=== PATIENT | male | born 1945 | race Caucasian/White ===

== ENCOUNTER 2017-06-16 19:37 | Inpatient (IN) | payer OTHER, MEDICARE ==
[~2017-06-16] VITALS: Ht 185.4 cm; Wt 122.5 kg
--- NOTE | ~2017-06-16 | 2DMMODE ---
[facility] [place] [address] 2 D/M-MODE ECHOCARDIOGRAM Name: PHELPSONEIDAJUANA Room #: 439-P [facility] IN M.R.#: [id number] Admission: 06/16/17 Attend Phys: Kevin Buck, Discharge: Date of : 41 Date of Service: 06/18/17 1136 Report #: [id number] THIS REPORT FOR: //name// APPROVED REPORT Study performed: 06/18/2017 09:10:42 EXAM: Comprehensive 2D, Doppler, and color-flow Echocardiogram Patient Location: Echo lab Room #: 439 Status: routine Other Information Study Quality: Adequate Indications Congestive Heart Failure Diabetes CAD Hypertension/HDD 2D Dimensions IVC: 23.00 mm Volumes Left Atrial Volume (Systole) LA ESV Index: 45.00 mL/m2 Tricuspid Valve RAP Estimate: 10.00 mmHg PA Pressure: 57.00 mmHg Left Ventricle The left ventricle is normal size. There is normal LV segmental wall motion. Borderline concentric left ventricular hypertrophy. The left ventricular systolic function is normal. The left ventricular ejection fraction is within the normal range. LVEF is 60-65%. Findings suggest the left atrial pressure is elevated. Right Ventricle The right ventricle is normal size. The right ventricular systolic function is normal. Atria Left atrium is dilated. Right atrium is dilated. [facility] [employer] [place] [address] 2 D/M-MODE ECHOCARDIOGRAM Name: ONEIDA PHELPS Room #: 439-P ADM IN M.R.#: [id number] Admission: 06/16/17 Attend Phys: Kevin Buck, Discharge: Date of : 41 Date of Service: 06/18/17 1136 Report #: [id number] Aortic Valve The aortic valve is normal in structure. Aortic valve is calcified. No aortic regurgitation is present. Moderate aortic stenosis. Mitral Valve The mitral valve is normal in structure. There is mitral annular calcification. Mild mitral regurgitation. No significant mitral valve stenosis. Tricuspid Valve The tricuspid valve is normal in structure. There is mild tricuspid regurgitation. The right atrial pressure is estimated at 10 mmHg. There is moderate pulmonary hypertension. The estimated PAP was 57 mmHg. Pulmonic Valve The pulmonary valve is normal in structure. Mild pulmonic regurgitation. Great Vessels The aortic root is normal in size. IVC is dilated and collapses >50% with inspiration. Pericardium There is no pericardial effusion. <Conclusion> The left ventricle is normal size. LVEF is 60-65%. Left atrium is dilated. Right atrium is dilated. The aortic valve is normal in structure. Aortic valve is calcified. No aortic regurgitation is present. Moderate aortic stenosis. The mitral valve is normal in structure. There is mitral annular calcification. Mild mitral regurgitation. The tricuspid valve is normal in structure. There is mild tricuspid regurgitation. The right atrial pressure is estimated at 10 mmHg. There is moderate pulmonary hypertension. The estimated PAP was 57 mmHg. [facility] [address] [place] [address] 2 D/M-MODE ECHOCARDIOGRAM Name: ONEIDA PHELPS Room #: 439-P ADM IN M.R.#: [id number] Admission: 06/16/17 Attend Phys: Kevin Buck, Discharge: Date of : 41 Date of Service: 06/18/17 1136 Report #: [id number] The pulmonary valve is normal in structure. Mild pulmonic regurgitation. <ELECTRONICALLY SIGNED> By: Alberto Estrella MD 06/18/17 1136 1136 1136 Alberto Estrella MD /INF
--- NOTE | ~2017-06-16 | HC ---
[facility] [place] [address] [place] [address] CONSULTATION Name: PHELPSONEIDA Room #: 439-P [facility] IN M.R.#: [id number] Admission: 06/16/17 Attend Phys: Kevin Buck MD Discharge: Date of : 43 Report #: [id number] THIS REPORT FOR: //name// CC: Kevin Buck MD DATE OF CONSULTATION: 06/17/2017 REASON FOR CONSULTATION: Epigastric/right upper quadrant abdominal pain. HISTORY OF PRESENT ILLNESS: This is a 72-year-old male patient of Dr. Kevin Buck, who was seen in the [place] [facility] with upper epigastric abdominal pain radiating to his mid back. His symptoms began this past , but were improved on Sunday. Yesterday (Sunday), his symptoms recurred and became more persistent. He was seen in the [place] [facility]. He reports almost immediate postprandial nausea and vomiting after any oral intake including saltines and water, which caused dry heaves. The patient denies fever or chills and has never had pain like this in the past. He underwent a CT of the abdomen and pelvis last night, which revealed cholelithiasis and findings for cholecystitis. In addition to this, the patient had duodenal wall thickening with periduodenal inflammatory stranding. Colonic diverticulosis was also seen with no inflammatory changes. His white blood cell count was not elevated; although he had a slight left shift with 80% segmented neutrophils. He had mild elevation of his total bilirubin of 1.1 and alkaline phosphatase was elevated at 176; transaminase and lipase levels were normal. PAST MEDICAL HISTORY: Includes previous myocardial infarction x 3, diabetes mellitus, asthma, obstructive sleep apnea (uses a CPAP), coronary artery disease, hypercholesterolemia, hypertension, gastroesophageal reflux disease, previous TIA. The patient also has benign prostatic hypertrophy. PAST SURGICAL HISTORY: Includes previous knee surgery, bilateral total hip arthroplasties, coronary artery bypass graft - quintuple, previous cardiac stents, bilateral inguinal hernia repairs in 1976. MEDICATIONS: Flomax, omeprazole, hydrochlorothiazide, NovoLog insulin, Cozaar, Lopressor, Lantus insulin, clonidine, Lipitor, Symbicort, aspirin, Ventolin inhalers and vitamins. See chart for dosing details. ALLERGIES: No known drug allergies. FAMILY HISTORY: Reviewed and noncontributory to this hospitalization. These include heart disease, COPD, diabetes, and hypertension. SOCIAL HISTORY: The patient is and denies use of tobacco (quit 30 years ago) or illicit drugs. [place] [address] CONSULTATION Name: ONEIDA PHELPS Room #: 439-P [facility] IN .R.#: [id number] Admission: 06/16/17 Attend Phys: Kevin Buck MD Discharge: Date of : 41 Report #: [id number] REVIEW OF SYSTEMS: As per history of present illness. GENERAL: The patient denies unintentional weight loss. Denies fever or chills. HEENT: Denies changes in taste, vision, hearing or smell. RESPIRATORY: Reports shortness of breath "always", felt to be secondary to obesity, secondary to insulin use. Denies worsening short of breath. CARDIOVASCULAR: Denies chest pain or palpitations. GASTROINTESTINAL: As per history of present illness. Denies bright red blood per rectum. GENITOURINARY: Denies dysuria, urgency, increased urinary frequency or hematuria. Notes dark urine. NEUROLOGIC: Denies headaches, numbness or tingling. PSYCHIATRIC: Denies depression, anxiety or suicidal ideations. SKIN/INTEGUMENTARY: Denies new skin lesions, rashes or moles. ENDOCRINE: Denies polydipsia, polyuria, heat or cold intolerance. HEMATOLOGIC: Denies easy bleeding, bruising or anemia. All other review of systems is negative. PHYSICAL EXAMINATION: VITAL SIGNS: Temperature 97.4, blood pressure 150/47, pulse 72, respirations 20, height 6 feet 1 inch, weight 270 pounds. GENERAL: This is a well-developed, well-nourished 72-year-old male patient in no acute distress. HEENT: Atraumatic, normocephalic with moist mucosal membranes. He has no scleral icterus. NECK: Supple, no appreciable lymphadenopathy. Trachea is midline. CHEST: Clear bilaterally. No crackles or wheezes. CARDIOVASCULAR: Regular rate and rhythm, S1, S2. ABDOMEN: Soft, but tender to palpation, greatest in the upper epigastrium/right upper quadrant. He has a negative Abdul's sign, no rebound or guarding. No palpable masses, no appreciable hernias. GENITOURINARY: Normal external male genitalia. EXTREMITIES: No clubbing, cyanosis or edema. NEUROLOGIC: Cranial nerves 2-12 grossly intact. PSYCHIATRIC: Normal mood and affect. SKIN/INTEGUMENTARY: No acute inflammatory changes, rashes or lesions are present. LABORATORY DATA: CBC from last night shows a white blood cell count of 3.9, hemoglobin 12.2, hematocrit 36.2 and platelets 38. Electrolytes showed a sodium of 139, potassium 4.4, chloride 103, CO2 25, BUN 33, creatinine 1.5 and glucose 214. AST and ALT were normal at 34 and 20 respectively. Total bilirubin was mildly elevated at 1.1 with an elevated alkaline phosphatase of 176. Lipase was normal at 92. RADIOLOGIC STUDIES: CT findings are as noted above. The patient also underwent a chest x-ray, which showed cardiomegaly and diffuse interstitial thickening [facility] [address] [place] [address] CONSULTATION Name: ONEIDA PHELPS Room #: 439-P ADM IN .R.#: [id number] Admission: 06/16/17 Attend Phys: Kevin Buck MD Discharge: Date of : 43 Report #: [id number] throughout the pulmonary cruz bilaterally. IMPRESSION AND PLAN: This is a 72-year-old male patient with upper epigastric/right upper quadrant abdominal pain radiating through to his back. His imaging studies show both duodenitis and cholecystitis changes. We discussed the pathophysiology and natural history of biliary disease as well as treatment alternatives and surgical options. The patient would benefit from further evaluation with an ultrasound and possibly a PIPIDA scan. Further recommendations will be made pending results of these studies. The patient can try clear liquids today and can take his medications with sips of fluids; however, if he does not tolerate this, he may need to be made n.p.o. Regarding his duodenitis, would continue the proton pump inhibitor and antibiotics, and consider adding Carafate. A GI consult would be beneficial. The patient expressed understanding of the plan, which was also discussed with Dr. Kevin Buck. I sincerely appreciate the opportunity to participate in the care of this patient and will leave further recommendations and orders in the electronic medical record as appropriate. <ELECTRONICALLY SIGNED> By: Fabricio Gatica MD, FACS 06/18/17 0509 1640 2139 Fabricio Gatica MD, FACS /nt
--- NOTE | ~2017-06-16 | EKG ---
[place] [address] [facility] [place] [address] ELECTROCARDIOGRAM REPORT Name: ONEIDA PHELPS Room #: 439-P ADM IN M.R.#: [id number] Admission: 06/16/17 Attend Phys: Kevin Buck MD Discharge: Date of : 43 Report #: [id number] THIS REPORT FOR: //name// [facility] Test Date: 2017-06-17 Test Time: 08:00:10 Pat Name: ONEIDA PHELPS Department: Room: 439 Gender: M Precast Molder: FATOUMATA : 1945 Requested By: Kevin Buck Order Number: [id number] MD: Heath Esteban Measurements Intervals [place] Rate: 85 P: 19 DC: 153 QRS: 92 QRSD: 103 T: 15 QT: 376 QTc: 447 Interpretive Statements Sinus rhythm Occasional premature ventricular complexes Right axis deviation Compared to ECG 06/16/2017 20:01:30 Ventricular premature complex(es) now present Electronically Signed On 06-18-2017 9:23:43 CDT by Heath Esteban [email or web address] <ELECTRONICALLY SIGNED> By: Heath Esteban MD, [facility] 06/18/17922 9 08 Heath Esteban MD, [facility] /EPI
--- NOTE | ~2017-06-16 | EKG ---
[place] [address] [facility] [place] [address] ELECTROCARDIOGRAM REPORT Name: ONEIDA PHELPS Room #: 439-P ADM IN M.R.#: [id number] Admission: 06/16/17 Attend Phys: Kevin Buck MD Discharge: Date of : 43 Report #: [id number] THIS REPORT FOR: //name// [facility] ED Test Date: 2017-06-16 Test Time: 20:01:30 Pat Name: ONEIDA PHELPS Department: Room: 439 Gender: M Continuity Coordinator: ANGELLA : 1945 Requested By: Ainsley Dewitt Order Number: [id number] MD: Heath Esteban Measurements Intervals [place] Rate: 60 P: 24 AK: 158 QRS: 74 QRSD: 114 T: 33 QT: 436 QTc: 436 Interpretive Statements Sinus rhythm Probable left atrial enlargement Incomplete right bundle branch block Compared to ECG 11/09/2016 23:51:47 No significant change was found Electronically Signed On 06-17-2017 10:58:44 CDT by Heath Esteban [email or web address] <ELECTRONICALLY SIGNED> By: Heath Esteban MD, [facility] 06/17/17 1058 00 00 Heaht Esteban MD, [facility] /EPI
[~2017-06-16 19:37] MED LIST: AGGRENOX 25 MG1 EACH PO; AGGRENOX CAPSU1 EACH PO; ALBUTEROL INHAL17 GM INH; ASA81BEC PO; ASPIRIN325 PO; ATORVASTATIN CA40 MG PO; CATAPRES0.1 MG PO; CENTRUM SILVER1 EAC1 PO; CINNAMON OIL480 ML PO; CINNAMON500 MG PO; CLONIDINE0.1 PO; COUMADIN 2 MG TA2 M1 PO; COZAAR 50 MG TA50 M2 PO; COZAAR100 MG PO; DIABETA 5MG TABL5 MG PO; FISH OIL 1,0001 EAC5 PO; FLOMAX0.4 MG PO; FLONASE 0.05%50 MCG NASAL; GLUCOPHAGE1000 MG PO; HYDROCHLOROTHIA25 M1 PO; HYDROCHLOROTHIA25 M2 PO; KAPVAY0.1 MG PO; LANTUS SUBQ; LANTUS100 UNIT/M SUBQ; LEVAQUIN 500 M500 MG PO; LOPRESSOR PO; LOPRESSOR100 MG PO; LORTAB 5-325 M1 EACH PO; NORCO 5-325 TA1 EACH PO; NORVASC 5 MG TAB5 MG PO; NOVOLOG100 UNIT/1 SQ; NOVOLOG100 UNIT/1 SUBQ; OMEPRAZOLE 20 M20 M1 PO; OMEPRAZOLE20 M2 PO; PERCOCET 10-321 EACH PO; PLAVIX 75 MG TA75 M1 PO; PREDNISONE 20 M20 MG PO; SINGULAIR 10 MG10 M1 PO; SPIRIVA INH; SPIRIVA18 MCG; SYMBICORT160 MCG/4. INH; TAMSULOSIN HCL0.4 M1 PO; TOPROL XL100 MG PO; TUSSIONEX PENN473 ML PO; VENTOLIN HFA 1818 GM INH; VITAMIN C500 M1 PO; VITAMIN E400 UNI2 PO; VITAMIN E400 UNIT PO; VITCB500GO PO; ZOCOR 20 MG TAB20 M1 PO; ZOCOR20 MG PO; ZOCOR40 MG PO
[2017-06-16 19:40] VITALS: BP 196/69
[2017-06-16 20:15] LABS: HEMOGLOBIN 12.2 gm/dL (14.0-18.0); PLATELET COUNT 38 thou/uL (150-400)
[2017-06-16 20:17] LABS: HEMATOCRIT 36.2 % (42.0-52.0); MCH 30.6 pg (26.0-34.0); MCHC 33.6 g/dL (28.0-37.0); RBC 3.97 mil/uL (4.50-6.00); RDW 15.5 % (10.5-14.5); WBC 3.9 thou/uL (4.0-11.0)
[2017-06-16 20:18] LABS: MANUAL DIFF YES
[2017-06-16 20:20] LABS: ANION GAP 11 mmol/L (7-16); BUN 33 mg/dL (7-18); CALCIUM 9.2 mg/dL (8.5-10.1); CHLORIDE 103 mmol/L (98-107); CO2 25 mmol/L (21-32); CREATININE 1.5 mg/dL (0.7-1.3); GLUCOSE 214 mg/dL (74-106); POTASSIUM 4.4 mmol/L (3.5-5.1); SODIUM 139 mmol/L (136-145)
[2017-06-16 20:31] LABS: ALBUMIN 3.7 g/dL (3.4-5.0); ALKALINE PHOSPHATASE 176 U/L (46-116); NT-PRO BRAIN NAT PEPTIDE 1188 pg/mL (<300); SGOT 34 U/L (15-37); SGPT 29 U/L (30-65); TOTAL BILIRUBIN 1.1 mg/dL (<0.1-1.0); TOTAL PROTEIN 7.2 g/dL (6.4-8.2); TROPONIN-I < 0.04 ng/mL (<0.04-0.07)
[2017-06-16 20:44] LABS: ABSOLUTE NEUTROPHILS 3.2 thou/uL (1.4-8.2); TOTAL CELL COUNT 100
[2017-06-16 20:45] LABS: PLATELET ESTIMATE DECREASED
[2017-06-16] MEDS ORDERED: VITAMIN E400 UNIT PO (22:42)
[2017-06-16] MEDS ORDERED: VITAMINC500 (22:42)
[2017-06-16] MEDS ORDERED: ASPIR 8181 MG PO (22:42)
[2017-06-16 23:03] VITALS: BP 169/71
[2017-06-16] MEDS ORDERED: VENTOLIN HFA 1818 GM INH (23:32)
[2017-06-16 23:40] VITALS: BP 170/64
[2017-06-17 08:00] VITALS: BP 150/47
[2017-06-17 16:00] VITALS: BP 169/57
[2017-06-17 19:40] VITALS: BP 152/51
[2017-06-18 04:17] LABS: RBC 3.78 mil/uL (4.50-6.00)
[2017-06-18 04:19] LABS: HEMATOCRIT 33.6 % (42.0-52.0); HEMOGLOBIN 11.7 gm/dL (14.0-18.0); MCH 31.1 pg (26.0-34.0); MCHC 34.9 g/dL (28.0-37.0); RDW 14.8 % (10.5-14.5); WBC 6.7 thou/uL (4.0-11.0)
[2017-06-18 04:30] VITALS: BP 159/64
[2017-06-18 04:37] LABS: ALBUMIN 2.9 g/dL (3.4-5.0); CALCIUM 8.5 mg/dL (8.5-10.1); CREATININE 1.3 mg/dL (0.7-1.3); POTASSIUM 4.2 mmol/L (3.5-5.1); TOTAL BILIRUBIN 1.6 mg/dL (<0.1-1.0); TOTAL PROTEIN 6.3 g/dL (6.4-8.2)
[2017-06-18 08:00] VITALS: BP 173/56
[2017-06-18 16:00] VITALS: BP 155/54
[2017-06-18 21:10] VITALS: BP 169/71
[2017-06-19 03:50] LABS: HEMATOCRIT 34.5 % (42.0-52.0); RBC 3.87 mil/uL (4.50-6.00)
[2017-06-19 03:51] LABS: MCH 31.1 pg (26.0-34.0); MCHC 34.8 g/dL (28.0-37.0); MCV 89.3 fL (80.0-100.0); RDW 15.1 % (10.5-14.5); WBC 9.2 thou/uL (4.0-11.0)
[2017-06-19 04:02] LABS: ALBUMIN 2.7 g/dL (3.4-5.0); CALCIUM 8.6 mg/dL (8.5-10.1); CREATININE 1.3 mg/dL (0.7-1.3); POTASSIUM 4.2 mmol/L (3.5-5.1); TOTAL BILIRUBIN 1.3 mg/dL (<0.1-1.0); TOTAL PROTEIN 6.2 g/dL (6.4-8.2)
[2017-06-19 05:00] VITALS: BP 145/53
[2017-06-19 09:02] VITALS: BP 141/53
[2017-06-19 15:41] VITALS: BP 146/52
[2017-06-19 19:39] VITALS: BP 121/53
[2017-06-20 05:49] VITALS: BP 124/45
[2017-06-20] MEDS ORDERED: NORCO 5-325 TA1 EACH PO (07:20)
[2017-06-20] MEDS ORDERED: FLAGYL500 MG PO (07:20)
[2017-06-20] MEDS ORDERED: CIPRO500 MG PO (07:20)
[2017-06-20 08:50] VITALS: BP 104/50
[2017-06-20 16:23] VITALS: BP 104/50
== END 2017-06-20 16:56 | disposition home or self-care (01) | DRG 444 ==
LOC: ER 19:37 → 4S 21:43 → EROBS 21:43 → 4S 23:05
PROVIDERS: Family Medicine; Nurse Practitioner Adult Health; Nurse Practitioner Family
PROC: 0DJ08ZZ Inspection of Upper Intestinal Tract, Via Natural or Artificial Opening Endoscopic (ICD-10-PCS; principal; 2017-06-19)
DX: K81.0 Acute cholecystitis (principal); E43 Unspecified severe protein-calorie malnutrition; N17.9 Acute kidney failure, unspecified; K29.80 Duodenitis without bleeding; Z96.641 Presence of right artificial hip joint; J45.909 Unspecified asthma, uncomplicated; E11.22 Type 2 diabetes mellitus with diabetic chronic kidney disease; I13.10 Hypertensive heart and chronic kidney disease without heart failure, with stage 1 through stage 4 chronic kidney disease, or unspecified chronic kidney disease; N18.9 Chronic kidney disease, unspecified; I25.10 Atherosclerotic heart disease of native coronary artery without angina pectoris; E78.00 Pure hypercholesterolemia, unspecified; K21.9 Gastro-esophageal reflux disease without esophagitis; Z96.642 Presence of left artificial hip joint; G47.33 Obstructive sleep apnea (adult) (pediatric); N40.0 Benign prostatic hyperplasia without lower urinary tract symptoms; D69.6 Thrombocytopenia, unspecified; K29.70 Gastritis, unspecified, without bleeding; K31.7 Polyp of stomach and duodenum; Z98.62 Peripheral vascular angioplasty status; I25.2 Old myocardial infarction; Z87.891 Personal history of nicotine dependence; Z86.73 Personal history of transient ischemic attack (TIA), and cerebral infarction without residual deficits; Z82.49 Family history of ischemic heart disease and other diseases of the circulatory system; Z83.3 Family history of diabetes mellitus; Z95.1 Presence of aortocoronary bypass graft; Z82.5 Family history of asthma and other chronic lower respiratory diseases; Z79.82 Long term (current) use of aspirin; Z79.899 Other long term (current) drug therapy
CPT/HCPCS: 10195; 62110; 62900; 70005

== ENCOUNTER → 2017-06-29 | Outpatient (CLI) | payer OTHER, MEDICARE ==
[~2017-06-29] MED LIST changes: +ASPIR 8181 MG PO; +CIPRO500 MG PO; +FLAGYL500 MG PO; +VITAMINC500
== END ==
LOC: ULTRA 10:33
DX: K81.1 Chronic cholecystitis (principal)

== ENCOUNTER 2017-07-03 08:47 | Inpatient (IN) | payer OTHER, MEDICARE ==
[~2017-07-03] VITALS: Ht 185.4 cm; Wt 103.0 kg
--- NOTE | ~2017-07-03 | EKG ---
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 : 1945 Requested By: Merry Alvares Order Number: [id number] MD: Dario Powers Measurements Intervals [place] Rate: 110 P: 49 ID: 140 QRS: 91 QRSD: 97 T: 260 QT: 313 QTc: 424 Interpretive Statements Sinus tachycardia Frequent Pacs Borderline T abnormalities, diffuse leads Compared to ECG 06/17/2017 08:00:10 T-wave abnormality now present Sinus rhythm no longer present Right-axis deviation no longer present Electronically Signed On 07-08-2017 22:09:18 CDT by Dario Powers [email or web address] <ELECTRONICALLY SIGNED> By: Dario Powers MD 07/08/17 2209 0843 Dario Powers MD /EPI
--- NOTE | ~2017-07-03 | EKG ---
[address] [address] ELECTROCARDIOGRAM REPORT Name: ONEIDA PHELPS Room #: 237- ADM IN M.R.#: [id number] Admission: 07/03/17 Attend Phys: Kevin Buck MD Discharge: Date of : 41 Report #: [id number] THIS REPORT FOR: //name// [facility] Test Date: 2017-07-24 Test Time: 20:03:46 Pat Name: ONEIDA PHELPS Department: Room: 237 P Gender: M Regulatory Leader: FATOUMATA : 1945 Requested By: Kevin Buck Order Number: [id number] MD: Heath Esteban Measurements Intervals [place] Rate: 97 P: 24 [place]: 158 QRS: 90 QRSD: 112 T: 60 QT: 357 QTc: 454 Interpretive Statements Sinus rhythm Borderline intraventricular conduction delay Borderline repolarization abnormality Compared to ECG 07/23/2017 07:46:44 Atrial premature complex(es) no longer present Electronically Signed On 07-25-2017 8:49:34 CDT by Heath Esteban [email or web address] <ELECTRONICALLY SIGNED> By: Heath Esteban MD, [facility] 07/25/17 0849 02 02 Heath Esteban MD, [facility] /EPI
--- NOTE | ~2017-07-03 | HC ---
[facility] [place] [address] [place] [address] CONSULTATION Name: PHELPSONEIDA Room #: 240-P [facility] IN ..#: [id number] Admission: 07/03/17 Attend Phys: Kevin Buck MD Discharge: Date of : 43 Report #: [id number] THIS REPORT FOR: //name// CC: Kevin Buck REASON FOR CONSULTATION: Low urine output. REASON FOR PRESENTATION: Abdominal pain. HISTORY OF PRESENT ILLNESS: The patient is 72-year-old with known cholelithiasis and cholecystitis. He was in the hospital back in May of this year. He was started on appropriate antibiotic with some improvement of his symptoms. He presented to the Emergency Room with worsening abdominal pain. CT showed that he had ascites with multiple gallstones and a stone in the cystic duct. He is known to have diabetes mellitus, obstructive sleep apnea. He also is known to have coronary artery disease. On presentation to the Emergency Room yesterday, he was found to have an elevated creatinine of 3. Has baseline creatinine is around 1.0. Stigmata of inflammatory and SIRS were present. He was admitted to the Intensive Care Unit after having a cholecystostomy tube by interventional radiology. I was consulted to manage his acute kidney injury. PAST MEDICAL HISTORY: 1. Known gallbladder stones. 2. Obstructive sleep apnea. 3. Coronary artery disease. 4. Hypercholesterolemia. 5. Hypertension. 6. Gastroesophageal reflux disease. 7. TIA. 8. Benign prostatic hypertrophy. MEDICATIONS: 1. Flomax. 2. Hydrochlorothiazide. 3. Clonidine. 4. Cozaar: 5. Insulin. 6. Lipitor. 7. Aspirin and multivitamin. ALLERGIES: No known drug allergies. SOCIAL HISTORY: He used to work for [employer] business. He is retired. No drug or alcohol abuse. FAMILY HISTORY: Significant for diabetes mellitus and hypertension. [facility] [address] [place] [address] CONSULTATION Name: ONEIDA PHELPS Room #: 240-P [facility] IN [facility]#: [id number] Admission: 07/03/17 Attend Phys: Kevin Buck MD Discharge: Date of : 43 Report #: [id number] PAST SURGICAL HISTORY: 1. Right knee surgery. 2. Bilateral total hip arthroplasties. 3. Inguinal hernia. 4. Coronary artery bypass. 5. Cardiac stents. REVIEW OF SYSTEMS: GENERAL: No fever or chills. PULMONARY: No shortness of breath. CARDIOVASCULAR: No chest pain or palpitation. GASTROINTESTINAL: Significant for abdominal pain, nausea, vomiting. GENITOURINARY: No frequency, no urgency. NEUROLOGIC: No headache, no numbness. ENDOCRINE: No polydipsia, no polyuria. HEMATOLOGICAL: No easy bruisability. No epistaxis. PHYSICAL EXAMINATION: GENERAL: The patient is alert, oriented, in no apparent distress. VITAL SIGNS: Temperature 37, blood pressure right now in the normal range at 114/50. HEAD AND NECK: No jugular venous distention, no bruit, no thyromegaly. CHEST: Clear to auscultation bilaterally. CARDIOVASCULAR: No rub detected. ABDOMEN: Distended with ascites and cholecystostomy tube. LOWER EXTREMITIES: No edema. LABORATORY DATA: Reviewed. The patient's creatinine on presentation was 3.0 and it is down to 2.2. All of his electrolytes are at target today with sodium of 141, potassium of 3.8 and magnesium of 1.2, which is being replaced. IMAGING: Including his abdomen CT and chest x-ray were reviewed. As I have stated, the abdominal CT reviewed that he has numerous gallbladder stones with moderate ascites, splenomegaly and cystic duct stone. ASSESSMENT AND IMPRESSION: 1. Acute kidney injury. 2. Status post cholecystostomy tube. 3. ____. 4. Systemic inflammatory response syndrome. 5. Elevated white blood cells. 6. Thrombocytopenia. 7. Concerning finding of low platelets, ascites. PLAN: 1. From the renal perspective, the patient seems to be recovering from his [facility] [address] [place] [address] CONSULTATION Name: ONEIDA PHELPS Room #: 240-P [facility] IN ..#: [id number] Admission: 07/03/17 Attend Phys: Kevin Buck MD Discharge: Date of : 43 Report #: [id number] acute kidney injury with good urine output after one time Lasix, he opened up. This is all prerenal acute kidney injury due to SIRS symptoms. 2. Continue with IV fluid. 3. Antibiotics. 4. Ultimately will need definitive approach for his gallbladder issues. 5. Concerning splenomegaly, low platelets, ascites, we will defer to the primary team, might need full GI evaluation. <ELECTRONICALLY SIGNED> By: Jesus Goodwin MD 07/06/17 08 0 09 Jesus Goodwin MD /nt
--- NOTE | ~2017-07-03 | S ---
[facility] [address] [place] [address] SURGICAL PATH RPT PROCEDURE Name: ONEIDA MANTILLA Room #: 237-P ADM IN M.R.#: [id number] Admission: 07/03/17 Date of : 41 Discharge: Report #: [id number] Path Case #: [id number] PATHOLOGY REPORT COLLECTION DATE: 07/13/2017 RECEIVED DATE: 07/13/2017 SUBMITTING PHYS: Dr. Kevin Buck OTHER PHYS: Dr. Kenton Cannon, SPECIMEN(S) RECEIVED: A.Liver biopsies x2 * * * * * * * * * * * * FINAL DIAGNOSIS: Liver, needle core biopsy: - Mild portal chronic inflammation (grade 1 of 4) along with Kupffer cell macrophages in zone 1 compatible with resolving injury. - No increase in fibrosis. (IUV:pit; 07/16/2017) COMMENT: Examination shows mild portal chronic inflammation comprised of scant lymphocytes and rare plasma cells. An occasional eosinophil is present. Kupffer cell macrophages are identified with lipofuscin pigment in zone 1 suggesting resolving injury. A single focus shows calcification within an artery, and may be suggestive of calcific sclerosis. Thinning of hepatocyte cords in zone 3 is not identified. There is no evidence of autoimmune hepatitis, primary biliary cirrhosis, primary sclerosing cholangitis, steatohepatitis, or venoocclusive disease. Special stains are performed on block A1 Trichrome stain - no significant increase in periportal fibrosis (stage 1 of 4) Reticulin stain - single hepatocyte cord PAS with and without Diastase - Kupffer cell macrophages, negative for intracytoplasmic inclusions in zone 1 Iron stain - negative The findings are nonspecific, and may be related to the gallbladder/biliary disease. Clinical correlation is suggested. (IUV:pit; 07/16/2017) PATHOLOGIST: Cathy Black M.D. REPORT ELECTRONICALLY SIGNED BY: Cathy Black M.D. DATE/TIME: 07/16/2017 17:01 * * * * * * * * * * * * [facility] [place] [address] SURGICAL PATH RPT PROCEDURE Name: MANTILLAONEIDA Room #: 237-P [facility] IN [facility].#: [id number] Admission: 07/03/17 Date of : 43 Discharge: Report #: [id number] Path Case #: [id number] GROSS PATHOLOGY: Received in formalin labeled "Oneida Mantilla, liver biopsies 2" is a 1.5 x 0.5 x 0.2 cm aggregate of red-brown cylindrical soft tissue cores. The cores range from 0.1-1.5 cm in length and measure 0.1 cm in diameter. The specimen is submitted entirely in cassette A1. ([facility]; 07/14/2017) CLINICAL HISTORY: Abdominal compartment syndrome and biliary obstruction INITIAL CPT CODE(S): A; 62012, 77068, 69959, 18993, 18697, 83607 Professional services performed by [facility] at [facility] [address] [facility], [place] [address] Technical services performed by [facility] at [address] [place] [address], [address], [place] [address]. [facility] [address] [place] [address] PHONE: [phone] DIRECTOR: Elmer Funez M.D. * * * END OF REPORT * * *
--- NOTE | ~2017-07-03 | HC ---
[facility] [place] [address] CONSULTATION Name: ONEIDA PHELPS Room #: 237-P [facility] IN .R.#: [id number] Admission: 07/03/17 Attend Phys: Kevin Buck MD Discharge: Date of : 43 Report #: [id number] THIS REPORT FOR: //name// CC: Kevin Buck DATE OF SERVICE: 07/20/2017 HISTORY OF PRESENT ILLNESS: The patient is a 73-year-old white male with a prior history of acute cholecystitis with a prior jasiel tube, who was readmitted not feeling well, was noted to have severe sepsis. He had septic shock with acute cholecystitis. He was noted to have an abdominal compartment syndrome secondary to ascites and underwent a decompression laparoscopic appendectomy with drainage of this diabetes and initial placement of an open abdominal wound VAC. He has since undergone closure of the abdominal wall on 07/13/2017. He continues in the intensive care unit. He is still on TPN. His course has been complicated by ileus, atrial fibrillation with rapid ventricular rate, acute renal insufficiency superimposed on chronic kidney disease. We are seeing him in Rehabilitation Medicine consultation. He does have abdominal drains with continued high output. His NG tube has been removed. Plan is to consider a cholecystectomy in the next few months once he is no longer acute. He has considerable weakness with a significant decline in his functional status. We are seeing him in Rehabilitation Medicine consultation. PAST MEDICAL HISTORY: Includes cardiac angioplasty x 2, OK x 3, noninsulin dependent diabetes mellitus. He has had bilateral hips replaced, history of hypertension, GERD. FAMILY HISTORY: Heart disease, COPD, diabetes, hypertension. HABITS: No history of ETOH or tobacco abuse. MEDICATIONS: Please see the full medication listing. ALLERGIES: No known drug allergies. SOCIAL HISTORY: House ____, 3 steps in, premorbid community ambulator without assistive device. REVIEW OF SYSTEMS: Did not offer any current complaints of chest pain or shortness of breath. He does have some overall generalized discomfort and is having some difficulty getting comfortable. He did not complain of any specific lower extremity pain. PHYSICAL EXAMINATION: GENERAL: He is a 72-year-old white male seen in the intensive care unit. VITAL SIGNS: Last recorded temperature is 96.6, pulse 96, respirations 13, [address] [address] CONSULTATION Name: ONEIDA PHELPS Room #: 237-P [facility] IN M.R.#: [id number] Admission: 07/03/17 Attend Phys: Kevin Buck MD Discharge: Date of : 43 Report #: [id number] blood pressure 95/43. NEUROLOGIC: The patient is alert, nasal prong O2 is in place. ABDOMEN: He has the midline abdominal negative pressure wound VAC in place. He has abdominal drains both on the right and the left. EXTREMITIES: Upper extremities revealed functional range of motion with strength grade 3+/5. Lower extremities: He has considerable proximal weakness with difficulty raising his legs up off the bed. I would grade his strength at approximately a 3-3+ distally, morbid 3+. DTRs are decreased. Functionally, he is able to sit up only for 2 minutes and then is max assist to try to lay back supine. ASSESSMENT: A 72-year-old white male with the following problem list: 1. 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 2. Septic shock. 3. Biliary sepsis. 4. Abdominal compartment syndrome, status post laparotomy for decompression, now closed. 5. Acute renal failure, better, CRRT/dialysis cath per Nephrology. 6. Respiratory failure, now on nasal cannula O2. 7. Ileus. 8. Liver disease. 9. Ascites. 10. Paroxysmal atrial fibrillation. 11. Bilateral pleural effusions. 12. Nutrition continuing on TPN. PLAN: He is at a low functional level currently. Continuing with intensive care unit involvement, we will have the therapist work with him on trying to gradually improve his strength and endurance, functional mobility and ADLs. We will be glad to follow along regarding rehab therapy issues as he further medically stabilizes. By: [id number] Evelio Hernández MD /
--- NOTE | ~2017-07-03 | HC ---
[facility] [place] [address] [place] [address] CONSULTATION Name: MATTIEONEIDA Campbell Room #: [facility] IN M.R.#: [id number] Admission: 07/03/17 Attend Phys: Kevin Buck MD Discharge: Date of : 43 Report #: [id number] THIS REPORT FOR: //name// CC: Caty Cabrera DO Kevin Buck MD DATE OF SERVICE: 07/03/2017 PULMONARY CRITICAL CARE NOTE DATE OF SERVICE: 07/03/2017. REFERRING PROVIDER: Dr. Kevin Buck and Dr. Caty Cabrera, Emergency Department. REASON FOR CONSULTATION: Sepsis. CHIEF COMPLAINT: Abdominal pain. HISTORY OF PRESENT ILLNESS: Our group was asked to see the patient in consultation while hospitalized at [facility], a very pleasant 72-year-old male who was recently hospitalized at the end of May, discharged to 06/20/2017, what appeared to be abdominal pain, perhaps related to cholecystitis and duodenitis, was discharged on antibiotic therapy with metronidazole and ciprofloxacin and just finished the antibiotic therapy yesterday. Represented this morning after noticing abdominal pain and been increasing overnight last night. No nausea or vomiting, has had several episodes of clear diarrhea. Denies any fevers, chills or sweats at this time. In the Emergency Department was noted to be in acute renal insufficiency, significant elevated creatinine, had elevated white blood cell count with the left ship. CT of abdomen and pelvis was ordered. Findings of possible diverticulitis along with cholecystitis and ascites noted on CT imaging. We were asked to assist with sepsis management. ALLERGIES: None known. PAST MEDICAL HISTORY: 1. History of coronary artery disease, status post coronary artery bypass grafting. 2. History of asthma on Symbicort p.r.n. but has needed more frequently recently. 3. Diabetes mellitus type 2. 4. Hypertension. 5. Gastroesophageal reflux disease. [facility] [address] [place] [address] CONSULTATION Name: ONEIDA PHELPS Room #: 240-P [facility]#: [id number] Admission: 07/03/17 Attend Phys: Kevin Buck MD Discharge: Date of : 43 Report #: [id number] 6. Obstructive sleep apnea, on nocturnal CPAP. 7. Prior history of transient ischemic attack. 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 No significant alcohol consumption, never smoker. FAMILY HISTORY: Negative for any significant pulmonary disease. OUTPATIENT MEDICATIONS: Include ciprofloxacin, Flagyl discontinued yesterday, hydrocodone, tamsulosin, omeprazole, insulin, losartan, metoprolol, clonidine, atorvastatin, Symbicort inhaler p.r.n., aspirin, vitamin C, vitamin E, and albuterol. REVIEW OF SYSTEMS: CONSTITUTIONAL: Denies any fevers, chills or sweats. ENT: No upper respiratory congestion, rhinorrhea or dysphagia. No headaches. CARDIOVASCULAR: No chest pain or palpitations. GASTROINTESTINAL: Significant abdominal pain, no nausea or vomiting, some clear diarrhea. GENITOURINARY: No dysuria, frequency or hematuria. INTEGUMENT: Denies any new rash. MUSCULOSKELETAL: No new joint pains or swelling. PHYSICAL EXAMINATION: VITAL SIGNS: The patient is currently afebrile, pulse 114 and regular, respiratory rate 20, blood pressure 114/50, oxygen saturation 98% on room air. GENERAL: This is a pleasant elderly male, in mild distress somewhat tachypneic. ENT: Clear oropharynx. No thrush. No erythema. NECK: Supple, no lymphadenopathy. LUNGS: Clear. No wheezes or crackles. CARDIOVASCULAR: Heart was tachycardic, but regular. No murmurs noted. ABDOMEN: Diffusely distended. Diminished bowel sounds. Diffuse tenderness particularly in the upper abdomen. EXTREMITIES: Only trace edema. They are warm with diminished pulses. LABORATORY DATA: Sodium 137, potassium 4.1, chloride 103, bicarbonate 20, BUN 34, creatinine 3.0, glucose 228. Total bilirubin 2.1, alkaline phosphatase 127, lactate 4.8, INR 1.5. White blood cell count 20,000, hemoglobin 13, hematocrit 40, platelet count 139, 16% band forms. Arterial blood gas revealed pH 7.32, pCO2 of 32, pO2 of 79 and bicarbonate 16. IMPRESSION: 1. Severe sepsis, likely related to acute abdominal process. 2. Acute abdomen, likely acute cholecystitis, possibly diverticulitis. 3. Ascites. 4. Lactic acidosis [place] [address] CONSULTATION Name: ONEIDA PHELPS Room #: 240-P [facility] IN M.R.#: [id number] Admission: 07/03/17 Attend Phys: Kevin Buck MD Discharge: Date of : 43 Report #: [id number] 5. Acute renal failure secondary to the above. 6. History of coronary artery disease. 7. Diabetes mellitus type 2. SUGGESTIONS: Sepsis per protocol, central line will be placed, will request Infectious Disease consultation for broad-spectrum antimicrobials, surgical consultation to reevaluate abdomen, ICU care addition, will trend lactate. Additional recommendations to follow. Total critical care time 35 minutes, not including procedures. Discussed with Dr. Cabrera of the Emergency Department as well as with the patient and family at the bedside. <ELECTRONICALLY SIGNED> By: Gabo Glez MD 07/05/17 1014 1114 1212 Gabo Glez MD /nt
--- NOTE | ~2017-07-03 | EKG ---
[place] [address] [facility] [employer] [place] [address] ELECTROCARDIOGRAM REPORT Name: ONEIDA PHELPS Room #: 237- ADM IN M.R.#: [id number] Admission: 07/03/17 Attend Phys: Kevin Buck MD Discharge: Date of : 43 Report #: [id number] THIS REPORT FOR: //name// [facility] Test Date: 2017-07-23 Test Time: 07:46:44 Pat Name: ONEIDA PHELPS Department: Room: 237 P Gender: M Oil Sprayer: MARISABEL : 1945 Requested By: Puja Glass Order Number: [id number] MD: Heath Esteban Measurements Intervals [place] Rate: 96 P: 12 NV: 160 QRS: 91 QRSD: 110 T: -82 QT: 331 QTc: 419 Interpretive Statements Sinus rhythm Atrial premature complexes Right axis deviation Nonspecific ST and T wave abnormality Compared to ECG 07/06/2017 08:43:07 Premature ventricular complexes no longer present Electronically Signed On 07-24-2017 13:01:07 CDT by Heath Esteban [email or web address] <ELECTRONICALLY SIGNED> By: Heath Esteban MD, [facility] 07/24/17 1301 0746 0746 Heath Esteban MD, [facility] /EPI
--- NOTE | ~2017-07-03 | O ---
[facility] [place] [address] OPERATIVE REPORT Name: MATTIEONEIDA Campbell Room #: 237-P [facility] IN M.R.#: [id number] Admission: 07/03/17 Attend Phys: Kevin Buck MD Discharge: Date of : 43 Report #: [id number] THIS REPORT FOR: //name// CC: Kevin Buck DATE OF SERVICE: 07/13/2017 SURGEON: Fabricio Gatica MD MUD MILL TENDER: Kenton Cannon DO PREOPERATIVE DIAGNOSES: 1. Abdominal compartment syndrome secondary to ascites. 2. Acute cholecystitis, status post percutaneous drain. 3. Ileus. 4. Diabetes mellitus. 5. Hypertension. 6. Acute kidney injury with chronic kidney disease. POSTOPERATIVE DIAGNOSES: 1. Abdominal compartment syndrome secondary to ascites. 2. Acute cholecystitis, status post percutaneous drain. 3. Ileus. 4. Diabetes mellitus. 5. Hypertension. 6. Acute kidney injury with chronic kidney disease. PROCEDURE: 1. Second look exploratory laparotomy. 2. Closure of abdominal wall. 3. Placement of Prevena topical wound VAC. ANESTHESIA: General anesthesia. ESTIMATED BLOOD LOSS: 10 mL. SPECIMEN: Rico-Cut core needle liver biopsies times 2. COMPLICATIONS: None appreciated. INDICATIONS FOR PROCEDURE: This is a 72-year-old male, patient of Dr. Kevin Buck, who was admitted this past May with abdominal pain radiating to his mid back. CT revealed changes consistent with cholecystitis and duodenitis. The patient was placed on antibiotics and did well during his hospitalization as well as out of the hospital. He followed up in clinic and had developed worsened pain that day. He then went to the [place] emergency room where he [facility] [address] [place] [address] OPERATIVE REPORT Name: ONEIDA PHELPS Room #: 237-P [facility] IN ..#: [id number] Admission: 07/03/17 Attend Phys: Kevin Buck MD Discharge: Date of : 43 Report #: [id number] was found to have significant leukocytosis and lactic acidosis. His CT revealed moderate ascites and numerous gallstones with gallbladder wall thickening and a stone impacted in the cystic duct. The patient underwent placement of a cholecystostomy tube by interventional radiology. Thereafter, he developed increasing abdominal distention and he was followed with KUBs and CT scans. He was felt to have an ileus secondary to his acute intraabdominal inflammatory process and he was found to have an elevated bladder pressures as high as 45 mmHg. The patient was placed on slow continuous hemodialysis for worsening renal failure and had developed abdominal compartment syndrome. He was felt to have biliary peritonitis; however, at the time of his decompressive laparotomy, there was no bile leak from the cholecystostomy tube. An 8300 mL of ascites fluid was present and this was evacuated. The patient was kept open with an ABThera device and he has been draining at least 2 liters of ascites fluid per day from his wound VAC. The patient presents now for a second look exploratory laparotomy. OPERATIVE FINDINGS: Upon reentrance into the abdominal cavity, only a small amount of ascites fluid was seen within the abdominal cavity. A total of 160 mL of ascites fluid was suctioned from the abdominal cavity. The cholecystostomy tube again was completely intact with no drainage holes outside of the gallbladder. The small-bowel was run from the ligament of Treitz to the terminal ileum and the bowel was completely viable. There was no nonviable tissue within the abdominal cavity. The patient's liver did appear nodular and as a result of this, an 18-gauge Rico-Cut needle liver biopsies times 2 were taken to be sent for specimen. The patient's small-bowel was distended with air consistent with an ileus. The bowel wall itself was not thickened. He continued to have an intense acute inflammatory reaction in the right upper quadrant of the abdomen. No other significant pathology was identified. At the conclusion of the operation, the sponge, needle, and instrument counts were correct. There was no evidence for iatrogenic injury. DESCRIPTION OF PROCEDURE IN DETAIL: After the risks, benefits, and expectations of the operation were discussed with the patient's , informed consent was obtained. The patient was identified in the intensive care unit. He was taken to the operating room and he was placed in the supine position. He has been receiving scheduled IV antibiotics, and as such, preoperative antibiotics were not necessary. The occlusive dressing of the ABThera was then removed. The patient's abdomen was prepped and draped in the standard sterile fashion. The patient had been given general anesthesia through his existing endotracheal tube and his SCDs were placed to pneumatic compression. The patient was then prepped and draped in the standard sterile fashion. A time-out was performed to identify the correct patient and procedure. The fenestrated drape within the abdominal cavity was removed and discarded. Operative findings are as noted above. The adhesions between the loops of small-bowel were carefully taken down with finger fracture technique. [facility] [address] [place] [address] OPERATIVE REPORT Name: ONEIDA PHELPS Room #: 237-P [facility] IN .R.#: [id number] Admission: 07/03/17 Attend Phys: Kevin Buck MD Discharge: Date of : 43 Report #: [id number] small-bowel was then run from the terminal ileum to the ligament of Treitz. Loculated fluid collections were suctioned. The abdominal cavity was then suctioned. The right upper quadrant was visualized and a severe inflammatory reaction was present. The cholecystostomy tube was intact. The nodular liver was biopsied with the Rico-Cut needle times 2. Hemostasis was achieved with electrocautery. No other pathology was identified. Hemovac drains times 2 were placed into the abdominal cavity. The drain exiting on the patient's right side drained the most dependent portion of the abdomen and extended up to the left pericolic gutter. The drain exiting on his left side was brought across the abdomen and up to the right upper quadrant of the abdomen along the right perihepatic space. After ensuring final hemostasis and that the sponge, needle and instrument counts were correct, the fascia was closed with a looped running #1 PDS suture. The drain had been secured to the skin with 2-0 nylon sutures. The wound was then irrigated with normal saline and the skin was stapled for closure. A Prevena topical wound VAC device was then applied to the staple line and connected to suction with a good seal. The patient tolerated the procedure well. He was returned to the intensive care unit in stable condition. <ELECTRONICALLY SIGNED> By: Fabricio Gatica MD, FACS 07/15/17 2246 1415 1447 Fabricio Gatica MD, FACS /nt
--- NOTE | ~2017-07-03 | O ---
[facility] [place] [address] OPERATIVE REPORT Name: ONEIDA PHELPS Room #: 237-P [facility] IN M.R.#: [id number] Admission: 07/03/17 Attend Phys: Kevin Buck MD Discharge: Date of : 43 Report #: [id number] THIS REPORT FOR: //name// CC: Chris Gatica MD DATE OF SERVICE: 07/11/2017 SURGEON: Fabricio Gatica M.D. GLASS CUTTING MACHINE OPERATOR: Kenton Cannon D.O. PREOPERATIVE DIAGNOSES: 1. Abdominal compartment syndrome, suspected to be secondary to bile peritonitis. 2. Acute cholecystitis, status post percutaneous drain placement. 3. Ileus. 4. Type 2 diabetes mellitus. 5. Hypertension. 6. Acute kidney injury with chronic kidney disease. POSTOPERATIVE DIAGNOSES: 1. Abdominal compartment syndrome secondary to ascites. 2. Acute cholecystitis, status post percutaneous drain placement. 3. Ileus. 4. Type 2 diabetes mellitus. 5. Hypertension. 6. Acute kidney injury with chronic kidney disease. PROCEDURES: 1. Decompressive laparotomy with drainage of ascites. 2. Placement of open abdominal wound VAC (ABThera). ANESTHESIA: General endotracheal anesthesia. ESTIMATED BLOOD LOSS: 10 mL. SPECIMEN: None. COMPLICATIONS: None appreciated. INDICATIONS FOR PROCEDURE: This is a 72-year-old male patient of Dr. Kevin Buck, known to me from a previous hospitalization for right upper quadrant abdominal pain. The patient was admitted this past May with abdominal pain [facility] [address] [place] [address] OPERATIVE REPORT Name: ONEIDA PHELPS Room #: 237-P ADM IN .R.#: [id number] Admission: 07/03/17 Attend Phys: Kevin Buck MD Discharge: Date of : 43 Report #: [id number] radiating to his mid back. A CT of the abdomen and pelvis showed cholelithiasis and findings consistent with cholecystitis. Duodenitis was also seen. Duodenal wall thickening and periduodenal inflammatory stranding were present. The patient was placed on antibiotics and did well during the hospitalization. He was eventually dismissed to home and followed up with me in clinic. He developed worsened pain after being seen and visited the [facility] where he was found to have significant leukocytosis and lactic acidosis. CT of the abdomen and pelvis showed moderate ascites and numerous gallstones with gallbladder wall thickening and a stone in the cystic duct. The patient underwent placement of a cholecystostomy tube. He developed increased abdominal distention thereafter, and he was followed with KUBs and CT scans. He had worsened distention. He was felt to have an ileus secondary to his acute intraabdominal inflammatory process. A bladder pressure was checked earlier today with pressures reading 45 mmHg. On recheck, the bladder pressures measured 35-40 mmHg. The patient has been on a slow continuous hemodialysis for worsening renal failure. He is felt to have developed abdominal compartment syndrome. There is a question as to whether the patient is developing bile peritonitis as one of the side holes of the cholecystostomy tube may be outside of the gallbladder and leaking bile into the abdominal cavity. The patient presents now for decompressive laparotomy. OPERATIVE FINDINGS: Upon entrance in the abdominal cavity, clear ascites fluid was seen within the abdomen. A total of 8300 mL of fluid was suctioned from the abdominal cavity. There was a light green tinge present to the fluid. The cholecystostomy tube itself was able to be visualized. It entered an acutely inflamed gallbladder, and none of the side holes were outside of the gallbladder. The liver also had a very nodular appearance. Significant right upper quadrant inflammatory changes were present with thickened tissue, and the tissue was difficult to discern. The patient's stomach was otherwise normal. His small bowel was diffusely distended consistent with an ileus. The bowel was completely viable. The colon appeared otherwise normal. The patient's appendix was also normal. No other significant intraabdominal pathology was identified. At the conclusion of the operation, the sponge, needle and instrument counts were correct, and there was no evidence for iatrogenic injury. DESCRIPTION OF PROCEDURE IN DETAIL: After the benefits and risks of the procedure were explained to the patient and his , which include but are not limited to risks of bleeding, infection, postoperative pain and postoperative expectations, informed consent was obtained. The patient was identified in the preoperative holding area. He has been receiving scheduled IV antibiotics. He was then taken to the operating room, and he was placed in the supine position. SCDs were placed on the patient's bilateral lower extremities, and pneumatic compression was initiated. The patient was then given IV sedation, and he was intubated without any incident. A timeout was performed to identify the correct patient and procedure. [address] [address] OPERATIVE REPORT Name: PHELPSONEIDA Room #: 237-P [facility] IN M.R.#: [id number] Admission: 07/03/17 Attend Phys: Kevin Buck MD Discharge: Date of : 43 Report #: [id number] The patient's abdomen was prepped and draped in a standard sterile fashion. A sharp #10 blade scalpel was used to make a vertical midline incision between the xiphoid and the umbilicus. Electrocautery was used to dissect through the subcutaneous tissue down to the fascia. The fascia was then opened along the length of the incision. The peritoneum was opened, and immediately after doing so, fluid was seen. Cultures were taken to be sent for aerobes, anaerobes and fungus. The fluid was suctioned from the patient's abdominal cavity. The small-bowel was run from the ligament of Treitz distally to the ileocecal valve and back proximally. The right upper quadrant inflammatory process was also visualized. The cholecystostomy tube was seen entering the gallbladder, and the drain holes were all entirely within the gallbladder with no leakage of bile. 10 mL of Tisseel was applied to the entrance site of the catheter into the gallbladder. No other significant intraabdominal pathology was identified. Decision was made to place an ABThera dressing and come back in 48 hours in this septic patient. The nasogastric tube was adjusted with manual palpation. The liver appeared nodular. Due to the intense inflammatory reaction in the right upper quadrant, decision was made not to attempt cholecystectomy. The ABThera perforated dressing was cut to size. The excess foam was removed. The dressing was then placed within the abdominal cavity to envelop the bowel. Blue foam sponges were then tailored to fit the skin opening. The drapes were taken down. The skin was cleansed and dried. Occlusive dressings were then placed over the ABThera device. A small opening was cut into the occlusive dressing, and the suction catheter was connected to this. A good seal on the drain was present. The patient tolerated the procedure well. He was placed on the transfer cart and brought to the intensive care unit in stable condition where he remained intubated. The patient will be taken back to the operating room in 48 hours for potential closure of his abdominal wall. The patient was given albumin intraoperatively for the massive fluid shift that took place. <ELECTRONICALLY SIGNED> By: Fabricio Gatica MD, FACS 07/12/17 2224 [id number] [id number] Fabricio Gatica MD, FACS /nt
--- NOTE | ~2017-07-03 | HC ---
[facility] [place] [address] [place] [address] CONSULTATION Name: ONEIDA PHELPS Room #: 240-P [facility] IN M.R.#: [id number] Admission: 07/03/17 Attend Phys: Kevin Buck MD Discharge: Date of : 43 Report #: [id number] THIS REPORT FOR: //name// CC: Chris Glez MD DATE OF SERVICE: 07/03/2017 ATTENDING PHYSICIAN: Kevin Buck MD CONSULTING PHYSICIAN: Fabricio Gatica MD REASON FOR CONSULTATION: Abdominal pain. HISTORY OF PRESENT ILLNESS: This is a 72-year-old male patient known to me from a previous hospitalization for right upper quadrant abdominal pain. He had been admitted this past May with abdominal pain radiating to his mid back. He underwent a CT of the abdomen and pelvis revealing cholelithiasis and findings consistent with cholecystitis as well as duodenal wall thickening and nabil-duodenal inflammatory stranding. The patient was placed on antibiotics and did well during his hospitalization. He was eventually dismissed home and followed up with me in clinic yesterday. When seen yesterday, he appeared pale and uncomfortable. Based on his clinical exam, I sent him for laboratory studies, which he did not get withdrawn until today. He was seen in the emergency room this morning with worsening abdominal pain. He had complained of mild pain yesterday. His laboratory studies showed significant leukocytosis and lactic acidosis. The patient underwent a CT of the abdomen and pelvis as well showing moderate ascites and numerous gallstones with gallbladder wall thickening and a stone in the cystic duct. I have been asked to see the patient for further evaluation and treatment. PAST MEDICAL HISTORY: Significant for previous myocardial infarction times 3, diabetes mellitus, asthma, obstructive sleep apnea with CPAP use, coronary artery disease, hypercholesterolemia, hypertension, gastroesophageal reflux disease, previous TIA, and benign prostatic hypertrophy. PAST SURGICAL HISTORY: Includes knee surgery, bilateral total hip arthroplasties, quintuple coronary artery bypass graft, previous cardiac stents, and bilateral inguinal hernia repairs in 1976. HOME MEDICATIONS: Include Flomax, omeprazole, hydrochlorothiazide, NovoLog insulin, Cozaar, Lopressor, Lantus, clonidine, Lipitor, Symbicort, aspirin, Ventolin inhalers, and multivitamins. ALLERGIES: No known drug allergies. [address] [address] CONSULTATION Name: ONEIDA PHELPS Room #: 240-P [facility] IN M.R.#: [id number] Admission: 07/03/17 Attend Phys: Kevin Buck MD Discharge: Date of : 43 Report #: [id number] FAMILY HISTORY: Reviewed and noncontributory. Heart disease, COPD, diabetes, and hypertension run in his family. SOCIAL HISTORY: The patient denies use of tobacco or illicit drugs. The patient drinks socially. REVIEW OF SYSTEMS: As per history of present illness. In addition: GENERAL: The patient denies unintentional weight loss. HEENT: Denies changes in taste, vision, hearing, or smell. RESPIRATORY: Denies worsening shortness of breath, but complains of shortness of breath secondary to obesity. CARDIOVASCULAR: Denies chest pain or palpitations. GASTROINTESTINAL: As per history of present illness. Denies bright red blood per rectum. GENITOURINARY: Denies dysuria, urgency, increased urinary frequency, or hematuria. MUSCULOSKELETAL: Denies myalgia, arthralgia, or arthritis. NEUROLOGIC: Denies headaches, numbness, or tingling. PSYCHIATRIC: Denies depression, anxiety, or suicidal ideations. SKIN AND INTEGUMENTARY: He denies new skin lesions, rashes, or moles. ENDOCRINE: Denies polydipsia, polyuria, heat or cold intolerance. HEMATOLOGIC: Denies easy bleeding or bruising. Denies anemia. All other review of systems is negative. PHYSICAL EXAMINATION: VITAL SIGNS: Temperature 97.5, blood pressure 104/58, pulse 114, respirations 16, height 6 feet 1 inch, and weight 260 pounds. GENERAL: This is a 72-year-old male patient, in no acute distress. He is to undergo a PICC line placement. HEENT: Atraumatic, normocephalic with moist mucosal membranes. He has no scleral icterus. NECK: Supple. No appreciable lymphadenopathy. Trachea is midline. CHEST: Clear bilaterally. No crackles or wheezes. CARDIOVASCULAR: Regular rate and rhythm. ABDOMEN: Soft and obese with tenderness to palpation in the mid and upper abdomen. He has negative Abdul's sign. No rebound or guarding. No palpable masses. GENITOURINARY: Normal external male genitalia. EXTREMITIES: No clubbing or cyanosis. NEUROLOGIC: Cranial nerves 2-12 grossly intact. PSYCHIATRIC: Normal mood and affect. SKIN AND INTEGUMENTARY: No acute inflammatory changes, rashes or lesions are present. [facility] [address] [place] [address] CONSULTATION Name: ONEIDA PHELPS Room #: 240-P ADM IN M.R.#: [id number] Admission: 07/03/17 Attend Phys: Kevin Buck MD Discharge: Date of : 43 Report #: [id number] LABORATORY DATA: CBC shows a white blood cell count 19.9, hemoglobin 13.4, hematocrit 40.1 and platelets 139 with 69% segmented neutrophils and 16% bandemia. His lactic acid levels were elevated around 5 (both arterial and venous). The patient's electrolytes showed a sodium of 137, potassium 4.1, chloride 103, CO2 of 20, BUN 34, creatinine 3.0, and glucose 228. His liver function tests were elevated with a total bilirubin of 2.1. AST and ALT were normal. Alkaline phosphatase was elevated at 127. RADIOLOGIC STUDIES: CT abdomen and pelvis findings are as noted above. IMPRESSION AND PLAN: This is a 72-year-old male patient with the above listed comorbidities, who has significant right upper quadrant abdominal pain and elevated liver function tests with leukocytosis. He appears to have acute cholecystitis and it may be getting septic. We discussed the pathophysiology and natural history of biliary disease as well as treatment alternatives and surgical options. The patient would benefit from placement of a cholecystostomy tube percutaneously by interventional radiology for decompression. Ultimately, the patient would benefit from cholecystectomy with cholangiogram at least 6 weeks after placement of a cholecystostomy tube. We had discussed risks, benefits, and expectations of the operation in detail in the office and I reiterated them today. The patient will be placed on IV antibiotics and we will continue to rest his bowel until there is evidence for bowel activity. I will follow along with serial abdominal exams as well as labs and x-rays as necessary. I sincerely appreciate the opportunity to participate in the care of this patient and we will leave further recommendations and orders in the electronic medical record as appropriate. Thank you very much. <ELECTRONICALLY SIGNED> By: Fabricio Gatica MD, FACS 07/04/17 0559 2029 2219 Fabricio Gatica MD, FACS /nt
[2017-07-03 08:52] VITALS: BP 104/58
[2017-07-03 09:20] LABS: HEMATOCRIT 40.1 % (42.0-52.0); HEMOGLOBIN 13.4 gm/dL (14.0-18.0); MCHC 33.5 g/dL (28.0-37.0); MCV 89.5 fL (80.0-100.0); PLATELET COUNT 139 thou/uL (150-400); RBC 4.48 mil/uL (4.50-6.00); RDW 15.6 % (10.5-14.5); WBC 19.9 thou/uL (4.0-11.0)
[2017-07-03 09:21] LABS: MANUAL DIFF YES
[2017-07-03 09:28] LABS: CALCIUM 8.4 mg/dL (8.5-10.1); POTASSIUM 4.1 mmol/L (3.5-5.1)
[2017-07-03 09:35] LABS: ALBUMIN 2.8 g/dL (3.4-5.0); DIRECT BILIRUBIN 0.7 mg/dL (<0.1-0.3); TOTAL BILIRUBIN 2.1 mg/dL (<0.1-1.0); TOTAL PROTEIN 6.5 g/dL (6.4-8.2)
[2017-07-03 09:50] LABS: ABSOLUTE NEUTROPHILS 16.9 thou/uL (1.4-8.2); PLATELET ESTIMATE NORMAL; TOTAL CELL COUNT 100
[2017-07-03 10:45] LABS: APTT 31.6 Seconds (24.5-32.8); INR 1.5; PROTIME 15.1 Seconds (9.3-11.4)
[2017-07-03 10:47] LABS: ABG SAMPLE TYPE ARTERIAL; BE(vivo) -8.9 mmol/L (-2 to +3); O2(CT) 15.7 mL/dL (15.0-23.0); O2Hb 92.9 % (92.0-98.0); PCO2 31.6 mmHg (35.0-45.0); PO2 78.9 mmHg (80.0-100.0)
[2017-07-03 10:48] LABS: LACTATE 5.11 mmol/L (0.5-2.0); STICK SITE R.RADIAL; pH 7.322 (7.360-7.450)
[2017-07-03 11:34] VITALS: BP 114/50
[2017-07-03 11:40] VITALS: BP 114/50
[2017-07-03 12:16] LABS: ABG SAMPLE TYPE VENOUS; BE(vivo) -9.3 mmol/L (-2 to +3); LACTATE 4.28 mmol/L (0.5-2.0); O2(CT) 11.8 mL/dL (15.0-23.0); O2Hb VENOUS 71.2 (65.0-85.0); PCO2 VENOUS 32.8 mmHg (41.0-51.0); PO2 VENOUS 39.5 mmHg (35.0-45.0); sO2 VENOUS 69.9 % (65.0-85.0)
[2017-07-03 12:17] LABS: STICK SITE LINE
[2017-07-03 14:25] LABS: ABG SAMPLE TYPE VENOUS; BE(vivo) -7.2 mmol/L (-2 to +3); HCO3 18.3 mmol/L (22.0-26.0); LACTATE 3.82 mmol/L (0.5-2.0); O2(CT) 11.4 mL/dL (15.0-23.0); O2Hb VENOUS 68.5 (65.0-85.0); PCO2 VENOUS 36.9 mmHg (41.0-51.0); PO2 VENOUS 36.8 mmHg (35.0-45.0); sO2 VENOUS 65.6 % (65.0-85.0); tCO2 19.4 mmol/L (24.0-30.0)
[2017-07-03 14:26] LABS: ABG COMMENT 2ND; STICK SITE LINE
[2017-07-03 14:43] LABS: CALCIUM 7.5 mg/dL (8.5-10.1); CREATININE 2.7 mg/dL (0.7-1.3); POTASSIUM 4.5 mmol/L (3.5-5.1)
[2017-07-03 14:50] LABS: APTT 34.3 Seconds (24.5-32.8); FIBRINOGEN 360.9 mg/dL (210-360); INR 1.5; PROTIME 15.4 Seconds (9.3-11.4)
[2017-07-03 15:03] LABS: URINE BILIRUBIN 1+ (Negative); URINE BLOOD NEGATIVE (Negative); URINE COLOR BROWN; URINE GLUCOSE-RANDOM* NEGATIVE (Negative); URINE KETONES TRACE (Negative); URINE LEUKOCYTES-REFLEX NEGATIVE (Negative); URINE PROTEIN (DIPSTICK) TRACE (Negative); URINE SPECIFIC GRAVITY >= 1.030 (1.003-1.035); URINE UROBILINOGEN 0.2 E.U./dl (0.2-1.0)
[2017-07-03 15:06] LABS: ICTOTEST (BILI CONFIRMATORY) Positive (Negative)
[2017-07-03 15:13] LABS: HYALINE CASTS 0-3 Few /LPF (None Seen); SQUAMOUS 0-3 Few /LPF (0-3)
[2017-07-03 15:15] LABS: URINE RBC None Seen /HPF (0-2); URINE WBC-REFLEX None Seen /HPF (0-5)
[2017-07-03 15:43] LABS: ABG SAMPLE TYPE MIXED VENOUS; BE(vivo) -8.2 mmol/L (-2 to +3); HCO3 17.2 mmol/L (22.0-26.0); LACTATE 2.78 mmol/L (0.5-2.0); O2Hb VENOUS 68.3 (65.0-85.0); PCO2 VENOUS 34.6 mmHg (41.0-51.0); PO2 VENOUS 37.7 mmHg (35.0-45.0); sO2 VENOUS 67.4 % (65.0-85.0); tCO2 18.2 mmol/L (24.0-30.0)
[2017-07-03 15:44] LABS: STICK SITE LINE
[2017-07-03 16:39] LABS: ABG SAMPLE TYPE VENOUS; BE(vivo) -6.2 mmol/L (-2 to +3); HCO3 19.1 mmol/L (22.0-26.0); LACTATE 2.54 mmol/L (0.5-2.0); O2(CT) 11.5 mL/dL (15.0-23.0); O2Hb VENOUS 71.4 (65.0-85.0); PCO2 VENOUS 36.8 mmHg (41.0-51.0); PO2 VENOUS 38.4 mmHg (35.0-45.0); sO2 VENOUS 69.4 % (65.0-85.0); tCO2 20.2 mmol/L (24.0-30.0)
[2017-07-03 16:40] LABS: ABG COMMENT NO COMPLICATIONS.; STICK SITE PICC
[2017-07-03 17:43] LABS: ABG SAMPLE TYPE VENOUS; BE(vivo) -9.2 mmol/L (-2 to +3); HCO3 15.5 mmol/L (22.0-26.0); LACTATE 2.27 mmol/L (0.5-2.0); O2(CT) 9.4 mL/dL (15.0-23.0); O2Hb VENOUS 68.9 (65.0-85.0); PCO2 VENOUS 29.6 mmHg (41.0-51.0); PO2 VENOUS 37.2 mmHg (35.0-45.0); sO2 VENOUS 68.4 % (65.0-85.0); tCO2 16.4 mmol/L (24.0-30.0)
[2017-07-03 17:44] LABS: STICK SITE PICC
[2017-07-03 18:02] LABS: CALCIUM 6.2 mg/dL (8.5-10.1); CREATININE 2.2 mg/dL (0.7-1.3); POTASSIUM 3.7 mmol/L (3.5-5.1)
[2017-07-03 18:04] LABS: APTT 36.2 Seconds (24.5-32.8); FIBRINOGEN 318.5 mg/dL (210-360); INR 1.6; PROTIME 16.7 Seconds (9.3-11.4)
[2017-07-03 19:22] LABS: ABG SAMPLE TYPE VENOUS; BE(vivo) -4.9 mmol/L (-2 to +3); HCO3 20.1 mmol/L (22.0-26.0); LACTATE 2.25 mmol/L (0.5-2.0); O2(CT) 10.9 mL/dL (15.0-23.0); O2Hb VENOUS 68.3 (65.0-85.0); PCO2 VENOUS 36.9 mmHg (41.0-51.0); PO2 VENOUS 35.6 mmHg (35.0-45.0); sO2 VENOUS 65.9 % (65.0-85.0); tCO2 21.2 mmol/L (24.0-30.0)
[2017-07-03 19:23] LABS: STICK SITE PICC
[2017-07-03 22:36] LABS: CALCIUM 6.8 mg/dL (8.5-10.1); CREATININE 2.2 mg/dL (0.7-1.3); POTASSIUM 3.7 mmol/L (3.5-5.1)
[2017-07-03 22:42] LABS: APTT 32.5 Seconds (24.5-32.8); FIBRINOGEN 354.2 mg/dL (210-360); INR 1.6; PROTIME 16.2 Seconds (9.3-11.4)
[2017-07-04] VITALS (16 sets, daily range): BP systolic 111–147; BP diastolic 53–75
[2017-07-04 04:58] LABS: HEMATOCRIT 33.4 % (42.0-52.0); HEMOGLOBIN 11.5 gm/dL (14.0-18.0); MCH 30.3 pg (26.0-34.0); MCHC 34.3 g/dL (28.0-37.0); MCV 88.3 fL (80.0-100.0); PLATELET COUNT 72 thou/uL (150-400); RBC 3.79 mil/uL (4.50-6.00); RDW 15.3 % (10.5-14.5); WBC 10.3 thou/uL (4.0-11.0)
[2017-07-04 05:09] LABS: MANUAL DIFF YES
[2017-07-04 05:10] LABS: ALBUMIN 2.1 g/dL (3.4-5.0); CALCIUM 7.5 mg/dL (8.5-10.1); CREATININE 2.2 mg/dL (0.7-1.3); MAGNESIUM 1.2 mg/dL (1.8-2.4); POTASSIUM 3.8 mmol/L (3.5-5.1); TOTAL BILIRUBIN 1.1 mg/dL (<0.1-1.0); TOTAL PROTEIN 5.6 g/dL (6.4-8.2)
[2017-07-04 06:43] LABS: ABSOLUTE NEUTROPHILS 8.7 thou/uL (1.4-8.2); TOTAL CELL COUNT 100
[2017-07-05] VITALS (36 sets, daily range): BP systolic 81–149; BP diastolic 47–100
[2017-07-05 05:22] LABS: HEMATOCRIT 35.9 % (42.0-52.0); HEMOGLOBIN 11.6 gm/dL (14.0-18.0); MANUAL DIFF YES; MCH 29.3 pg (26.0-34.0); MCHC 32.3 g/dL (28.0-37.0); MCV 90.8 fL (80.0-100.0); PLATELET COUNT 94 thou/uL (150-400); RBC 3.95 mil/uL (4.50-6.00); RDW 16.3 % (10.5-14.5); WBC 15.7 thou/uL (4.0-11.0)
[2017-07-05 05:29] LABS: CALCIUM 7.4 mg/dL (8.5-10.1); CREATININE 2.5 mg/dL (0.7-1.3); POTASSIUM 4.6 mmol/L (3.5-5.1)
[2017-07-05 06:49] LABS: ALBUMIN 1.8 g/dL (3.4-5.0); PHOSPHORUS 5.3 mg/dL (2.5-4.9)
[2017-07-05 06:53] LABS: ABSOLUTE NEUTROPHILS 13.2 thou/uL (1.4-8.2); PLATELET ESTIMATE DECREASED; TOTAL CELL COUNT 100
[2017-07-05 06:54] LABS: ANISOCYTOSIS 1+; BURR CELLS 1+; POLYCHROMASIA OCCASIONAL
[2017-07-05 08:02] LABS: ALBUMIN 1.9 g/dL (3.4-5.0); DIRECT BILIRUBIN 0.6 mg/dL (<0.1-0.3); MAGNESIUM 2.5 mg/dL (1.8-2.4); TOTAL BILIRUBIN 1.1 mg/dL (<0.1-1.0); TOTAL PROTEIN 5.4 g/dL (6.4-8.2)
[2017-07-05 13:43] LABS: PROT/CREAT RATIO 1.5; URINE CREATININE-RANDOM* 149.6 mg/dL
[2017-07-06] VITALS (42 sets, daily range): BP systolic 95–141; BP diastolic 44–102
[2017-07-06 05:43] LABS: ALBUMIN 1.7 g/dL (3.4-5.0); CALCIUM 8.1 mg/dL (8.5-10.1); CREATININE 3.1 mg/dL (0.7-1.3); PHOSPHORUS 4.9 mg/dL (2.5-4.9); POTASSIUM 3.9 mmol/L (3.5-5.1)
[2017-07-06 08:59] LABS: URINE BILIRUBIN 1+ (Negative); URINE BLOOD 3+ (Negative); URINE COLOR YELLOW; URINE GLUCOSE-RANDOM* NEGATIVE (Negative); URINE KETONES TRACE (Negative); URINE NITRITE NEGATIVE (Negative); URINE PROTEIN (DIPSTICK) 1+ (Negative); URINE SPECIFIC GRAVITY 1.025 (1.003-1.035); URINE UROBILINOGEN 0.2 E.U./dl (0.2-1.0)
[2017-07-06 09:03] LABS: ICTOTEST (BILI CONFIRMATORY) Negative (Negative)
[2017-07-06 09:11] LABS: BACTERIA 1-9 Few /HPF (None Seen); CASTS None Seen /LPF (None Seen); CRYSTALS None Seen /LPF (None Seen); SQUAMOUS 0-3 Few /LPF (0-3); URINE RBC >20 Many /HPF (0-2); URINE WBC 6-15 Few /HPF (0-5); YEAST Present (None Seen)
[2017-07-06 09:18] LABS: URINE CREATININE-RANDOM* < 0.2 mg/dL
[2017-07-07] VITALS (25 sets, daily range): BP systolic 100–139; BP diastolic 44–66
[2017-07-07 05:37] LABS: HEMATOCRIT 35.4 % (42.0-52.0); HEMOGLOBIN 11.7 gm/dL (14.0-18.0); MCH 29.7 pg (26.0-34.0); MCHC 33.1 g/dL (28.0-37.0); MCV 89.6 fL (80.0-100.0); PLATELET COUNT 93 thou/uL (150-400); RBC 3.95 mil/uL (4.50-6.00); RDW 16.2 % (10.5-14.5); WBC 10.4 thou/uL (4.0-11.0)
[2017-07-07 05:39] LABS: MANUAL DIFF YES
[2017-07-07 05:56] LABS: ALBUMIN 1.8 g/dL (3.4-5.0); CALCIUM 8.4 mg/dL (8.5-10.1); CREATININE 3.4 mg/dL (0.7-1.3); PHOSPHORUS 5.2 mg/dL (2.5-4.9); POTASSIUM 4.3 mmol/L (3.5-5.1); TOTAL BILIRUBIN 1.6 mg/dL (<0.1-1.0); TOTAL PROTEIN 5.7 g/dL (6.4-8.2)
[2017-07-07 06:47] LABS: ABSOLUTE NEUTROPHILS 8.6 thou/uL (1.4-8.2); ATYPICAL LYMPHS 1 %; METAMYELOCYTES 1 %; TOTAL CELL COUNT 100
[2017-07-07 06:48] LABS: ANISOCYTOSIS 1+; PLATELET ESTIMATE DECREASED
[2017-07-08 04:17] VITALS: BP 111/67
[2017-07-08 05:15] LABS: HEMATOCRIT 35.8 % (42.0-52.0); HEMOGLOBIN 11.8 gm/dL (14.0-18.0); MCH 29.6 pg (26.0-34.0); MCHC 32.9 g/dL (28.0-37.0); PLATELET COUNT 100 thou/uL (150-400); RBC 3.98 mil/uL (4.50-6.00); RDW 16.1 % (10.5-14.5); WBC 10.5 thou/uL (4.0-11.0)
[2017-07-08 05:16] LABS: MANUAL DIFF YES
[2017-07-08 05:23] LABS: ALBUMIN 1.7 g/dL (3.4-5.0); CREATININE 3.7 mg/dL (0.7-1.3); POTASSIUM 4.6 mmol/L (3.5-5.1); TOTAL BILIRUBIN 1.6 mg/dL (<0.1-1.0); TOTAL PROTEIN 5.5 g/dL (6.4-8.2)
[2017-07-08 05:29] LABS: CALCIUM 8.4 mg/dL (8.5-10.1)
[2017-07-08 07:20] VITALS: BP 118/64
[2017-07-08 08:32] LABS: ABSOLUTE NEUTROPHILS 8.6 thou/uL (1.4-8.2); METAMYELOCYTES 2 %; TOTAL CELL COUNT 100
[2017-07-08 08:33] LABS: ANISOCYTOSIS 1+; OVALOCYTES FEW
[2017-07-08 11:37] VITALS: BP 116/57
[2017-07-08 15:42] VITALS: BP 127/70
[2017-07-08 20:06] VITALS: BP 116/64
[2017-07-08 23:44] VITALS: BP 137/66
[2017-07-09 03:29] VITALS: BP 108/57
[2017-07-09 06:16] LABS: HEMATOCRIT 38.1 % (42.0-52.0); HEMOGLOBIN 12.3 gm/dL (14.0-18.0); MCH 29.1 pg (26.0-34.0); MCHC 32.2 g/dL (28.0-37.0); MCV 90.3 fL (80.0-100.0); RBC 4.22 mil/uL (4.50-6.00); RDW 16.1 % (10.5-14.5); WBC 10.8 thou/uL (4.0-11.0)
[2017-07-09 06:18] LABS: MANUAL DIFF YES
[2017-07-09 06:25] LABS: ALBUMIN 1.9 g/dL (3.4-5.0); CALCIUM 8.8 mg/dL (8.5-10.1); CREATININE 4.3 mg/dL (0.7-1.3); POTASSIUM 4.7 mmol/L (3.5-5.1); TOTAL BILIRUBIN 1.4 mg/dL (<0.1-1.0); TOTAL PROTEIN 5.8 g/dL (6.4-8.2)
[2017-07-09 08:46] LABS: ABSOLUTE NEUTROPHILS 8.4 thou/uL (1.4-8.2); METAMYELOCYTES 3 %; MYELOCYTES 3 %; PLATELET COUNT 86 thou/uL (150-400); PLATELET ESTIMATE DECREASED; TOTAL CELL COUNT 100
[2017-07-09 08:47] LABS: ANISOCYTOSIS 1+
[2017-07-09 12:08] VITALS: BP 129/54
[2017-07-09 12:38] LABS: ABG SAMPLE TYPE ARTERIAL; BE(vivo) -12.4 mmol/L (-2 to +3); HCO3 14.8 mmol/L (22.0-26.0); LACTATE 1.95 mmol/L (0.5-2.0); O2(CT) 17.6 mL/dL (15.0-23.0); O2Hb 96.1 % (92.0-98.0); PCO2 38.2 mmHg (35.0-45.0); PO2 106.6 mmHg (80.0-100.0); pH 7.205 (7.360-7.450); sO2 96.8 % (92.0-98.0); tCO2 15.9 mmol/L (24.0-30.0)
[2017-07-09 12:39] LABS: STICK SITE L.BRACHIAL
[2017-07-09 17:08] VITALS: BP 98/60
[2017-07-09 20:53] VITALS: BP 92/63
[2017-07-10 04:44] VITALS: BP 97/51
[2017-07-10 05:44] LABS: ALBUMIN 1.9 g/dL (3.4-5.0); CREATININE 4.9 mg/dL (0.7-1.3); PHOSPHORUS 7.9 mg/dL (2.5-4.9); POTASSIUM 5.1 mmol/L (3.5-5.1)
[2017-07-10 08:50] VITALS: BP 105/48
[2017-07-10 09:05] VITALS: BP 105/48
[2017-07-10 10:20] LABS: HEMATOCRIT 36.7 % (42.0-52.0); HEMOGLOBIN 11.9 gm/dL (14.0-18.0); MCH 28.8 pg (26.0-34.0); MCHC 32.4 g/dL (28.0-37.0); MCV 89.1 fL (80.0-100.0); RBC 4.11 mil/uL (4.50-6.00); RDW 15.4 % (10.5-14.5)
[2017-07-10 10:32] LABS: INR 1.2; PROTIME 12.2 Seconds (9.3-11.4)
[2017-07-10 10:36] LABS: ABG SAMPLE TYPE ARTERIAL; BE(vivo) -14.6 mmol/L (-2 to +3); HCO3 13.7 mmol/L (22.0-26.0); LACTATE 1.93 mmol/L (0.5-2.0); O2Hb 94.1 % (92.0-98.0); PO2 87.1 mmHg (80.0-100.0); sO2 93.7 % (92.0-98.0)
[2017-07-10 10:37] LABS: pH 7.142 (7.360-7.450)
[2017-07-10 10:41] LABS: STICK SITE L.RADIAL
[2017-07-10 12:17] VITALS: BP 111/40
[2017-07-10 17:37] LABS: ABG SAMPLE TYPE ARTERIAL; BE(vivo) -8.3 mmol/L (-2 to +3); HCO3 17.3 mmol/L (22.0-26.0); LACTATE 1.86 mmol/L (0.5-2.0); O2(CT) 17.1 mL/dL (15.0-23.0); O2Hb 96.5 % (92.0-98.0); PCO2 35.7 mmHg (35.0-45.0); PO2 103.7 mmHg (80.0-100.0); sO2 97.3 % (92.0-98.0); tCO2 18.3 mmol/L (24.0-30.0)
[2017-07-10 17:38] LABS: STICK SITE L.BRACHIAL; pH 7.302 (7.360-7.450)
[2017-07-10 20:12] VITALS: BP 96/53
[2017-07-10 23:38] VITALS: BP 120/53
[2017-07-11 04:07] VITALS: BP 114/45
[2017-07-11 05:55] LABS: ALBUMIN 1.7 g/dL (3.4-5.0); CALCIUM 8.5 mg/dL (8.5-10.1); CREATININE 4.4 mg/dL (0.7-1.3); MAGNESIUM 2.2 mg/dL (1.8-2.4); PHOSPHORUS 6.9 mg/dL (2.5-4.9); POTASSIUM 4.9 mmol/L (3.5-5.1)
[2017-07-11 07:18] LABS: ABG SAMPLE TYPE ARTERIAL; BE(vivo) -8.7 mmol/L (-2 to +3); LACTATE 1.46 mmol/L (0.5-2.0); PCO2 41.4 mmHg (35.0-45.0); PO2 100.1 mmHg (80.0-100.0); sO2 96.7 % (92.0-98.0); tCO2 19.2 mmol/L (24.0-30.0)
[2017-07-11 07:21] LABS: STICK SITE L.BRACHIAL; pH 7.255 (7.360-7.450)
[2017-07-11 08:00] VITALS: BP 115/52
[2017-07-11 08:32] LABS: HEMATOCRIT 33.3 % (42.0-52.0); HEMOGLOBIN 11.3 gm/dL (14.0-18.0); MCH 29.9 pg (26.0-34.0); MCHC 33.9 g/dL (28.0-37.0); MCV 88.1 fL (80.0-100.0); RBC 3.78 mil/uL (4.50-6.00); RDW 15.4 % (10.5-14.5); WBC 8.4 thou/uL (4.0-11.0)
[2017-07-11 08:34] LABS: MANUAL DIFF YES
[2017-07-11 09:07] LABS: ABSOLUTE NEUTROPHILS 6.3 thou/uL (1.4-8.2); PROMYELOCYTES 1 %; TOTAL CELL COUNT 100
[2017-07-11 09:08] LABS: MYELOCYTES 1 %; PLATELET COUNT 61 thou/uL (150-400); PLATELET ESTIMATE DECREASED
[2017-07-11 13:51] VITALS: BP 89/49
[2017-07-11 16:55] LABS: ABG SAMPLE TYPE ARTERIAL; BE(vivo) -8.5 mmol/L (-2 to +3); HCO3 18.5 mmol/L (22.0-26.0); LACTATE 1.56 mmol/L (0.5-2.0); O2Hb 95.4 % (92.0-98.0); PCO2 43.6 mmHg (35.0-45.0); STICK SITE LINE; TIDAL VOLUME 600 ml; pH 7.245 (7.360-7.450); sO2 96.5 % (92.0-98.0); tCO2 19.8 mmol/L (24.0-30.0)
[2017-07-11 16:56] LABS: ABG COMMENT A/C
[2017-07-11 20:34] VITALS: BP 92/38
[2017-07-12] VITALS (7 sets, daily range): BP systolic 85–127; BP diastolic 39–60
[2017-07-12 03:38] LABS: HEMATOCRIT 29.4 % (42.0-52.0); HEMOGLOBIN 10.3 gm/dL (14.0-18.0); MCH 30.5 pg (26.0-34.0); MCHC 34.9 g/dL (28.0-37.0); MCV 87.3 fL (80.0-100.0); PLATELET COUNT 72 thou/uL (150-400); RBC 3.37 mil/uL (4.50-6.00); RDW 15.1 % (10.5-14.5); WBC 8.7 thou/uL (4.0-11.0)
[2017-07-12 03:40] LABS: MANUAL DIFF YES
[2017-07-12 03:53] LABS: CREATININE 4.1 mg/dL (0.7-1.3); MAGNESIUM 2.1 mg/dL (1.8-2.4); PHOSPHORUS 5.4 mg/dL (2.5-4.9); POTASSIUM 4.6 mmol/L (3.5-5.1); TOTAL PROTEIN 4.7 g/dL (6.4-8.2)
[2017-07-12 07:48] LABS: ABSOLUTE NEUTROPHILS 6.5 thou/uL (1.4-8.2); ANISOCYTOSIS 1+; METAMYELOCYTES 5 %; OVALOCYTES FEW; POLYCHROMASIA OCCASIONAL; TOTAL CELL COUNT 100
[2017-07-12 22:06] LABS: HEP B SURFACE Ab(ANTI-HBS Non Reactive (()); HEPATITIS C VIRUS AB <0.1 (0.0-0.9)
[2017-07-13] VITALS (15 sets, daily range): BP systolic 59–129; BP diastolic 31–48
[2017-07-13 03:53] LABS: ALBUMIN 1.9 g/dL (3.4-5.0); CALCIUM 7.7 mg/dL (8.5-10.1); PHOSPHORUS 3.1 mg/dL (2.5-4.9); POTASSIUM 4.2 mmol/L (3.5-5.1); TOTAL BILIRUBIN 0.8 mg/dL (<0.1-1.0); TOTAL PROTEIN 4.7 g/dL (6.4-8.2)
[2017-07-13 04:05] LABS: HEMATOCRIT 29.2 % (42.0-52.0); HEMOGLOBIN 9.9 gm/dL (14.0-18.0); MCH 29.8 pg (26.0-34.0); MCHC 33.9 g/dL (28.0-37.0); PLATELET COUNT 80 thou/uL (150-400); RBC 3.32 mil/uL (4.50-6.00); RDW 15.4 % (10.5-14.5); WBC 9.8 thou/uL (4.0-11.0)
[2017-07-13 04:15] LABS: MANUAL DIFF YES
[2017-07-13 05:20] LABS: ABSOLUTE NEUTROPHILS 7.3 thou/uL (1.4-8.2); METAMYELOCYTES 3 %; MYELOCYTES 3 %; TOTAL CELL COUNT 100
[2017-07-13 05:21] LABS: ANISOCYTOSIS SLIGHT; LARGE PLATELETS RARE
[2017-07-13 15:52] LABS: ABG SAMPLE TYPE ARTERIAL; BE(vivo) -0.6 mmol/L (-2 to +3); HCO3 24.4 mmol/L (22.0-26.0); LACTATE 1.39 mmol/L (0.5-2.0); O2(CT) 15.2 mL/dL (15.0-23.0); O2Hb 95.1 % (92.0-98.0); PCO2 41.3 mmHg (35.0-45.0); PO2 90.5 mmHg (80.0-100.0); pH 7.389 (7.360-7.450); sO2 96.8 % (92.0-98.0); tCO2 25.7 mmol/L (24.0-30.0)
[2017-07-13 15:56] LABS: ABG COMMENT C-PAP; Pressure Support 5 cm H20; STICK SITE LINE
[2017-07-14] VITALS (25 sets, daily range): BP systolic 96–125; BP diastolic 36–83
[2017-07-14 04:25] LABS: ABG SAMPLE TYPE ARTERIAL; BE(vivo) 0.6 mmol/L (-2 to +3); HCO3 24.4 mmol/L (22.0-26.0); LACTATE 1.49 mmol/L (0.5-2.0); O2Hb 95.9 % (92.0-98.0); PCO2 35.6 mmHg (35.0-45.0); PO2 95.3 mmHg (80.0-100.0); pH 7.453 (7.360-7.450); sO2 97.6 % (92.0-98.0); tCO2 25.4 mmol/L (24.0-30.0)
[2017-07-14 04:26] LABS: STICK SITE LINE
[2017-07-14 04:34] LABS: HEMATOCRIT 28.8 % (42.0-52.0); HEMOGLOBIN 9.9 gm/dL (14.0-18.0); MCH 30.2 pg (26.0-34.0); MCHC 34.2 g/dL (28.0-37.0); MCV 88.1 fL (80.0-100.0); PLATELET COUNT 102 thou/uL (150-400); RBC 3.27 mil/uL (4.50-6.00); RDW 15.3 % (10.5-14.5); WBC 17.5 thou/uL (4.0-11.0)
[2017-07-14 04:53] LABS: ALBUMIN 1.5 g/dL (3.4-5.0); CALCIUM 7.6 mg/dL (8.5-10.1); CREATININE 2.5 mg/dL (0.7-1.3); MAGNESIUM 1.9 mg/dL (1.8-2.4); PHOSPHORUS 3.6 mg/dL (2.5-4.9); POTASSIUM 4.4 mmol/L (3.5-5.1)
[2017-07-14 05:06] LABS: MANUAL DIFF YES
[2017-07-14 07:29] LABS: ABSOLUTE NEUTROPHILS 12.1 thou/uL (1.4-8.2); METAMYELOCYTES 3 %; NUCLEATED RBCS 1 /100WBC; TOTAL CELL COUNT 100
[2017-07-14 07:30] LABS: ANISOCYTOSIS 2+; POLYCHROMASIA SLIGHT
[2017-07-14 07:31] LABS: POIKILOCYTOSIS SLIGHT
[2017-07-15] VITALS (25 sets, daily range): BP systolic 107–137; BP diastolic 40–72
[2017-07-15 05:01] LABS: ABG COMMENT AC12 600 +5 40%; ABG SAMPLE TYPE ARTERIAL; LACTATE 1.22 mmol/L (0.5-2.0); O2(CT) 13.7 mL/dL (15.0-23.0); O2Hb 96.9 % (92.0-98.0); PCO2 39.4 mmHg (35.0-45.0); PO2 113.3 mmHg (80.0-100.0); STICK SITE LINE; TIDAL VOLUME 600 ml; pH 7.469 (7.360-7.450); sO2 98.4 % (92.0-98.0); tCO2 29.2 mmol/L (24.0-30.0)
[2017-07-15 05:12] LABS: HEMATOCRIT 26.8 % (42.0-52.0); HEMOGLOBIN 9.1 gm/dL (14.0-18.0); MCHC 33.8 g/dL (28.0-37.0); MCV 88.7 fL (80.0-100.0); PLATELET COUNT 92 thou/uL (150-400); RBC 3.03 mil/uL (4.50-6.00); RDW 15.4 % (10.5-14.5); WBC 12.5 thou/uL (4.0-11.0)
[2017-07-15 05:13] LABS: MANUAL DIFF YES
[2017-07-15 05:26] LABS: ALBUMIN 1.4 g/dL (3.4-5.0); CALCIUM 7.7 mg/dL (8.5-10.1); CREATININE 1.8 mg/dL (0.7-1.3); PHOSPHORUS 3.5 mg/dL (2.5-4.9); POTASSIUM 4.4 mmol/L (3.5-5.1)
[2017-07-15 07:18] LABS: ABSOLUTE NEUTROPHILS 10.6 thou/uL (1.4-8.2); TOTAL CELL COUNT 100
[2017-07-16] VITALS (11 sets, daily range): BP systolic 100–128; BP diastolic 41–51
[2017-07-16 05:39] LABS: ALBUMIN 1.4 g/dL (3.4-5.0); CALCIUM 7.9 mg/dL (8.5-10.1); PHOSPHORUS 4.2 mg/dL (2.5-4.9)
[2017-07-17 04:49] LABS: HEMOGLOBIN 8.2 gm/dL (14.0-18.0); MCH 30.5 pg (26.0-34.0); MCHC 34.3 g/dL (28.0-37.0); MCV 89.1 fL (80.0-100.0); RBC 2.69 mil/uL (4.50-6.00); RDW 16.7 % (10.5-14.5); WBC 7.4 thou/uL (4.0-11.0)
[2017-07-17 05:00] LABS: ALBUMIN 1.4 g/dL (3.4-5.0); CALCIUM 7.7 mg/dL (8.5-10.1); CREATININE 1.5 mg/dL (0.7-1.3); MAGNESIUM 1.8 mg/dL (1.8-2.4); PHOSPHORUS 3.6 mg/dL (2.5-4.9); POTASSIUM 4.2 mmol/L (3.5-5.1)
[2017-07-17 05:43] LABS: ABG SAMPLE TYPE ARTERIAL; PCO2 38.3 mmHg (35.0-45.0); PO2 93.2 mmHg (80.0-100.0); STICK SITE L.BRACHIAL
[2017-07-17 05:44] LABS: BE(vivo) 2.4 mmol/L (-2 to +3); FIO2 30 %; HCO3 26.4 mmol/L (22.0-26.0); LACTATE 1.37 mmol/L (0.5-2.0); O2Hb 95.8 % (92.0-98.0); tCO2 27.6 mmol/L (24.0-30.0)
[2017-07-17 05:45] LABS: TIDAL VOLUME 600 ml
[2017-07-18 05:27] LABS: HEMATOCRIT 23.6 % (42.0-52.0); HEMOGLOBIN 7.9 gm/dL (14.0-18.0); MCHC 33.5 g/dL (28.0-37.0); MCV 89.6 fL (80.0-100.0); RBC 2.63 mil/uL (4.50-6.00); RDW 16.4 % (10.5-14.5); WBC 7.2 thou/uL (4.0-11.0)
[2017-07-18 05:41] LABS: ALBUMIN 1.4 g/dL (3.4-5.0); CALCIUM 7.9 mg/dL (8.5-10.1); CREATININE 1.5 mg/dL (0.7-1.3); PHOSPHORUS 3.2 mg/dL (2.5-4.9)
[2017-07-18 09:08] LABS: ANTI-DNA SCREEN <1 IU/mL (0-9); ANTI-RNP 1.8 AI (0.0-0.9)
[2017-07-18 10:56] LABS: ABG SAMPLE TYPE ARTERIAL; BE(vivo) 0.6 mmol/L (-2 to +3); HCO3 24.5 mmol/L (22.0-26.0); LACTATE 1.13 mmol/L (0.5-2.0); O2(CT) 11.8 mL/dL (15.0-23.0); O2Hb 95.9 % (92.0-98.0); PCO2 36.1 mmHg (35.0-45.0); PO2 95.8 mmHg (80.0-100.0); pH 7.449 (7.360-7.450); sO2 97.6 % (92.0-98.0); tCO2 25.6 mmol/L (24.0-30.0)
[2017-07-18 10:57] LABS: STICK SITE LINE
[2017-07-18 10:58] LABS: ABG COMMENT CPAP X 1.5 HR; Pressure Support 8 cm H20; TIDAL VOLUME 610 ml
[2017-07-18 21:16] VITALS: BP 111/48
[2017-07-19 00:20] VITALS: BP 95/49
[2017-07-19 05:26] VITALS: BP 110/52
[2017-07-19 06:18] LABS: ALBUMIN 1.4 g/dL (3.4-5.0); CALCIUM 8.2 mg/dL (8.5-10.1); CREATININE 1.7 mg/dL (0.7-1.3); MAGNESIUM 1.8 mg/dL (1.8-2.4); PHOSPHORUS 3.6 mg/dL (2.5-4.9); POTASSIUM 3.7 mmol/L (3.5-5.1)
[2017-07-19 11:31] LABS: ABG SAMPLE TYPE ARTERIAL; HCO3 26.7 mmol/L (22.0-26.0); LACTATE 0.78 mmol/L (0.5-2.0); O2(CT) 12.5 mL/dL (15.0-23.0); O2Hb 93.7 % (92.0-98.0); PCO2 47.6 mmHg (35.0-45.0); PO2 78.6 mmHg (80.0-100.0); pH 7.366 (7.360-7.450); sO2 95.2 % (92.0-98.0); tCO2 28.1 mmol/L (24.0-30.0)
[2017-07-19 11:32] LABS: STICK SITE LINE
[2017-07-19 19:51] VITALS: BP 97/46
[2017-07-19 21:54] VITALS: BP 105/47
[2017-07-19 22:33] VITALS: BP 110/45
[2017-07-19 23:00] VITALS: BP 99/47
[2017-07-20] VITALS (26 sets, daily range): BP systolic 91–125; BP diastolic 36–66
[2017-07-20 05:25] LABS: ALBUMIN 1.4 g/dL (3.4-5.0); CALCIUM 8.1 mg/dL (8.5-10.1); CREATININE 1.4 mg/dL (0.7-1.3); PHOSPHORUS 3.5 mg/dL (2.5-4.9); POTASSIUM 3.8 mmol/L (3.5-5.1)
[2017-07-21] VITALS (42 sets, daily range): BP systolic 77–161; BP diastolic 39–75
[2017-07-21 01:45] LABS: ABG SAMPLE TYPE ARTERIAL; BE(vivo) -4.1 mmol/L (-2 to +3); HCO3 20.5 mmol/L (22.0-26.0); LACTATE 0.81 mmol/L (0.5-2.0); PCO2 36.6 mmHg (35.0-45.0); PO2 134.8 mmHg (80.0-100.0); pH 7.367 (7.360-7.450); sO2 98.6 % (92.0-98.0); tCO2 21.7 mmol/L (24.0-30.0)
[2017-07-21 01:46] LABS: Pressure Support 12 cm H20; STICK SITE L.BRACHIAL
[2017-07-21 05:11] LABS: HEMATOCRIT 21.8 % (42.0-52.0); HEMOGLOBIN 7.4 gm/dL (14.0-18.0); MCH 30.5 pg (26.0-34.0); MCHC 33.8 g/dL (28.0-37.0); MCV 90.1 fL (80.0-100.0); RBC 2.42 mil/uL (4.50-6.00); RDW 16.5 % (10.5-14.5); WBC 6.7 thou/uL (4.0-11.0)
[2017-07-21 05:30] LABS: ALBUMIN 1.5 g/dL (3.4-5.0); CALCIUM 8.5 mg/dL (8.5-10.1); CREATININE 1.8 mg/dL (0.7-1.3); MAGNESIUM 1.7 mg/dL (1.8-2.4); PHOSPHORUS 4.1 mg/dL (2.5-4.9); POTASSIUM 3.7 mmol/L (3.5-5.1)
[2017-07-21 07:31] LABS: URINE BILIRUBIN NEGATIVE (Negative); URINE BLOOD 2+ (Negative); URINE COLOR YELLOW; URINE GLUCOSE-RANDOM* NEGATIVE (Negative); URINE KETONES NEGATIVE (Negative); URINE LEUKOCYTES-REFLEX 2+ (Negative); URINE PROTEIN (DIPSTICK) TRACE (Negative); URINE UROBILINOGEN 0.2 E.U./dl (0.2-1.0)
[2017-07-21 07:53] LABS: CASTS None Seen /LPF (None Seen); CRYSTALS None Seen /LPF (None Seen); SQUAMOUS None Seen /LPF (0-3); URINE RBC 3-10 Few /HPF (0-2); URINE WBC-REFLEX >25 Many /HPF (0-5); YEAST-REFLEX Present (None Seen)
[2017-07-21 09:19] LABS: ABG SAMPLE TYPE ARTERIAL; BE(vivo) 1.9 mmol/L (-2 to +3); HCO3 27.3 mmol/L (22.0-26.0); LACTATE 0.89 mmol/L (0.5-2.0); O2(CT) 11.9 mL/dL (15.0-23.0); O2Hb 95.2 % (92.0-98.0); PCO2 46.9 mmHg (35.0-45.0); PO2 87.3 mmHg (80.0-100.0); pH 7.383 (7.360-7.450); sO2 96.4 % (92.0-98.0); tCO2 28.7 mmol/L (24.0-30.0)
[2017-07-21 09:20] LABS: STICK SITE L.BRACHIAL
[2017-07-22] VITALS (26 sets, daily range): BP systolic 81–132; BP diastolic 39–98
[2017-07-22 04:51] LABS: HEMATOCRIT 24.7 % (42.0-52.0); HEMOGLOBIN 8.3 gm/dL (14.0-18.0); MCH 30.2 pg (26.0-34.0); MCHC 33.8 g/dL (28.0-37.0); MCV 89.6 fL (80.0-100.0); RBC 2.75 mil/uL (4.50-6.00); RDW 16.7 % (10.5-14.5); WBC 10.7 thou/uL (4.0-11.0)
[2017-07-22 05:02] LABS: ALBUMIN 1.7 g/dL (3.4-5.0); CALCIUM 8.6 mg/dL (8.5-10.1); CREATININE 1.8 mg/dL (0.7-1.3); MAGNESIUM 1.6 mg/dL (1.8-2.4); PHOSPHORUS 4.5 mg/dL (2.5-4.9); POTASSIUM 3.7 mmol/L (3.5-5.1)
[2017-07-23] VITALS (27 sets, daily range): BP systolic 88–128; BP diastolic 32–94
[2017-07-23 04:26] LABS: HEMATOCRIT 22.4 % (42.0-52.0); HEMOGLOBIN 7.5 gm/dL (14.0-18.0); MCH 30.2 pg (26.0-34.0); MCHC 33.4 g/dL (28.0-37.0); MCV 90.5 fL (80.0-100.0); PLATELET COUNT 82 thou/uL (150-400); RBC 2.48 mil/uL (4.50-6.00); RDW 17.1 % (10.5-14.5); WBC 8.5 thou/uL (4.0-11.0)
[2017-07-23 04:39] LABS: ALBUMIN 1.6 g/dL (3.4-5.0); CALCIUM 8.6 mg/dL (8.5-10.1); CREATININE 1.7 mg/dL (0.7-1.3); PHOSPHORUS 3.9 mg/dL (2.5-4.9); POTASSIUM 3.5 mmol/L (3.5-5.1)
[2017-07-23 04:46] LABS: MANUAL DIFF YES
[2017-07-23 06:23] LABS: ABSOLUTE NEUTROPHILS 6.8 thou/uL (1.4-8.2); ANISOCYTOSIS 2+; ATYPICAL LYMPHS 1 %; METAMYELOCYTES 1 %; MYELOCYTES 2 %; POLYCHROMASIA OCCASIONAL; TOTAL CELL COUNT 100
[2017-07-23 20:57] LABS: ABG SAMPLE TYPE ARTERIAL; BE(vivo) 6.4 mmol/L (-2 to +3); HCO3 33.1 mmol/L (22.0-26.0); LACTATE 1.22 mmol/L (0.5-2.0); O2(CT) 11.3 mL/dL (15.0-23.0); O2Hb 91.9 % (92.0-98.0); PCO2 61.2 mmHg (35.0-45.0); PO2 66.5 mmHg (80.0-100.0); pH 7.351 (7.360-7.450); sO2 91.7 % (92.0-98.0)
[2017-07-23 20:58] LABS: STICK SITE R.RADIAL
[2017-07-24] VITALS (23 sets, daily range): BP systolic 103–143; BP diastolic 45–89
[2017-07-24 05:30] LABS: ALBUMIN 1.6 g/dL (3.4-5.0); CREATININE 1.6 mg/dL (0.7-1.3); PHOSPHORUS 3.7 mg/dL (2.5-4.9); POTASSIUM 3.6 mmol/L (3.5-5.1)
[2017-07-24 10:03] LABS: ALBUMIN 1.6 g/dL (3.4-5.0); DIRECT BILIRUBIN 0.3 mg/dL (<0.1-0.3); TOTAL BILIRUBIN 0.5 mg/dL (<0.1-1.0); TOTAL PROTEIN 5.6 g/dL (6.4-8.2)
[2017-07-25] VITALS (25 sets, daily range): BP systolic 82–140; BP diastolic 37–74
[2017-07-25 05:55] LABS: ALBUMIN 1.7 g/dL (3.4-5.0); CALCIUM 9.4 mg/dL (8.5-10.1); CREATININE 1.3 mg/dL (0.7-1.3); MAGNESIUM 1.6 mg/dL (1.8-2.4); PHOSPHORUS 3.1 mg/dL (2.5-4.9); POTASSIUM 3.7 mmol/L (3.5-5.1)
[2017-07-26] VITALS (18 sets, daily range): BP systolic 93–134; BP diastolic 44–65
[2017-07-26 05:41] LABS: ALBUMIN 1.7 g/dL (3.4-5.0); CALCIUM 9.2 mg/dL (8.5-10.1); CREATININE 1.5 mg/dL (0.7-1.3); MAGNESIUM 1.7 mg/dL (1.8-2.4); PHOSPHORUS 2.4 mg/dL (2.5-4.9); POTASSIUM 4.1 mmol/L (3.5-5.1)
[2017-07-26 18:59] LABS: ABG SAMPLE TYPE ARTERIAL; BE(vivo) 9.9 mmol/L (-2 to +3); HCO3 34.1 mmol/L (22.0-26.0); LACTATE 1.45 mmol/L (0.5-2.0); O2(CT) 10.5 mL/dL (15.0-23.0); O2Hb 92.3 % (92.0-98.0); PCO2 45.3 mmHg (35.0-45.0); PO2 68.1 mmHg (80.0-100.0); pH 7.495 (7.360-7.450); sO2 94.8 % (92.0-98.0); tCO2 35.5 mmol/L (24.0-30.0)
[2017-07-26 19:00] LABS: ABG COMMENT NO COMPLICATIONS.; STICK SITE R.RADIAL
[2017-07-27] VITALS (24 sets, daily range): BP systolic 101–140; BP diastolic 44–94
[2017-07-27 04:54] LABS: HEMATOCRIT 21.6 % (42.0-52.0); HEMOGLOBIN 7.2 gm/dL (14.0-18.0); MCH 30.3 pg (26.0-34.0); MCHC 33.4 g/dL (28.0-37.0); MCV 90.5 fL (80.0-100.0); PLATELET COUNT 63 thou/uL (150-400); RBC 2.38 mil/uL (4.50-6.00); RDW 17.7 % (10.5-14.5); WBC 4.1 thou/uL (4.0-11.0)
[2017-07-27 04:59] LABS: MANUAL DIFF YES
[2017-07-27 05:19] LABS: ABSOLUTE NEUTROPHILS 3.4 thou/uL (1.4-8.2); ANISOCYTOSIS 1+; METAMYELOCYTES 1 %; TOTAL CELL COUNT 100
[2017-07-27 05:20] LABS: PLATELET ESTIMATE DECREASED
[2017-07-27 05:21] LABS: ALBUMIN 1.7 g/dL (3.4-5.0); CALCIUM 9.4 mg/dL (8.5-10.1); CREATININE 1.5 mg/dL (0.7-1.3); PHOSPHORUS 2.4 mg/dL (2.5-4.9); POTASSIUM 4.2 mmol/L (3.5-5.1)
[2017-07-28] VITALS (15 sets, daily range): BP systolic 97–131; BP diastolic 34–60
[2017-07-28 05:44] LABS: ALBUMIN 1.7 g/dL (3.4-5.0); CALCIUM 9.4 mg/dL (8.5-10.1); CREATININE 1.4 mg/dL (0.7-1.3); PHOSPHORUS 2.9 mg/dL (2.5-4.9); TOTAL BILIRUBIN 0.6 mg/dL (<0.1-1.0); TOTAL PROTEIN 6.2 g/dL (6.4-8.2)
[2017-07-29 03:35] VITALS: BP 115/55
[2017-07-29 05:43] LABS: ALBUMIN 1.7 g/dL (3.4-5.0); CALCIUM 9.3 mg/dL (8.5-10.1); CREATININE 1.6 mg/dL (0.7-1.3); PHOSPHORUS 3.9 mg/dL (2.5-4.9); POTASSIUM 3.9 mmol/L (3.5-5.1)
[2017-07-29 07:32] VITALS: BP 122/63
[2017-07-29 11:51] VITALS: BP 107/55
[2017-07-29 16:52] VITALS: BP 104/49
[2017-07-29 19:48] VITALS: BP 120/55
[2017-07-30 04:13] VITALS: BP 103/52
[2017-07-30 05:48] LABS: ABG SAMPLE TYPE ARTERIAL; BE(vivo) 1.4 mmol/L (-2 to +3); HCO3 26.5 mmol/L (22.0-26.0); O2(CT) 10.8 mL/dL (15.0-23.0); O2Hb 93.6 % (92.0-98.0); PCO2 44.2 mmHg (35.0-45.0); pH 7.395 (7.360-7.450); sO2 95.6 % (92.0-98.0); tCO2 27.8 mmol/L (24.0-30.0)
[2017-07-30 05:49] LABS: STICK SITE R.RADIAL
[2017-07-30 06:18] LABS: ALBUMIN 1.7 g/dL (3.4-5.0); CALCIUM 8.9 mg/dL (8.5-10.1); CREATININE 1.6 mg/dL (0.7-1.3); MAGNESIUM 1.7 mg/dL (1.8-2.4); PHOSPHORUS 4.9 mg/dL (2.5-4.9); POTASSIUM 3.7 mmol/L (3.5-5.1)
[2017-07-30 07:52] VITALS: BP 119/61
[2017-07-30 13:04] VITALS: BP 112/45
[2017-07-30 15:49] VITALS: BP 115/51
[2017-07-30 20:32] VITALS: BP 116/47
[2017-07-31 04:09] VITALS: BP 122/58
[2017-07-31 04:55] LABS: HEMATOCRIT 22.9 % (42.0-52.0); HEMOGLOBIN 7.5 gm/dL (14.0-18.0); MCH 29.9 pg (26.0-34.0); MCHC 32.6 g/dL (28.0-37.0); MCV 91.7 fL (80.0-100.0); RBC 2.5 mil/uL (4.50-6.00); RDW 18.6 % (10.5-14.5); WBC 4.6 thou/uL (4.0-11.0)
[2017-07-31 05:12] LABS: ALBUMIN 1.7 g/dL (3.4-5.0); CALCIUM 8.9 mg/dL (8.5-10.1); CREATININE 1.6 mg/dL (0.7-1.3); PHOSPHORUS 3.7 mg/dL (2.5-4.9); POTASSIUM 3.5 mmol/L (3.5-5.1)
[2017-07-31] MEDS ORDERED: PACERONE 200 M200 M1 PER TUBE (07:49)
[2017-07-31] MEDS ORDERED: ENOXAPARIN40 MG/0.1 SUBQ (07:49)
[2017-07-31] MEDS ORDERED: LOPRESSOR25 PER TUBE (07:50)
[2017-07-31] MEDS ORDERED: HUMALOG100 UNIT/1 SUBQ (07:50)
[2017-07-31 08:45] VITALS: BP 126/55
[2017-07-31 12:02] VITALS: BP 141/50
[2017-07-31] MEDS ORDERED: LASIX 40 MG TAB40 M2 IV (16:36)
[2017-07-31 17:15] VITALS: BP 121/43
== END 2017-07-31 19:00 | DRG 853 ==
LOC: ER 08:47 → ICU 11:24 → ER 11:30 → ICU 12:13 → 2N 07-07 14:29 → ICU 07-11 06:47 → 4W 07-28 11:23
PROVIDERS: Emergency Medicine; Family Medicine; Hospitalist; Internal Medicine Endocrinology, Diabetes & Metabolism; Internal Medicine Nephrology; Internal Medicine Pulmonary Disease; Radiology Diagnostic Radiology; Specialist; Surgery
PROC: 0F9930Z Drainage of Common Bile Duct with Drainage Device, Percutaneous Approach (ICD-10-PCS; principal; 2017-07-03)
PROC: 0W9G0ZZ Drainage of Peritoneal Cavity, Open Approach (ICD-10-PCS; 2017-07-03)
PROC: 02HV33Z Insertion of Infusion Device into Superior Vena Cava, Percutaneous Approach (ICD-10-PCS; 2017-07-03)
PROC: 0D9670Z Drainage of Stomach with Drainage Device, Via Natural or Artificial Opening (ICD-10-PCS; 2017-07-05)
PROC: 4A133B1 Monitoring of Arterial Pressure, Peripheral, Percutaneous Approach (ICD-10-PCS; 2017-07-11)
PROC: 03HY32Z Insertion of Monitoring Device into Upper Artery, Percutaneous Approach (ICD-10-PCS; 2017-07-11)
PROC: 4A133J1 Monitoring of Arterial Pulse, Peripheral, Percutaneous Approach (ICD-10-PCS; 2017-07-11)
PROC: 5A1955Z Respiratory Ventilation, Greater than 96 Consecutive Hours (ICD-10-PCS; 2017-07-12)
PROC: 0BH17EZ Insertion of Endotracheal Airway into Trachea, Via Natural or Artificial Opening (ICD-10-PCS; 2017-07-12)
PROC: 5A09557 Assistance with Respiratory Ventilation, Greater than 96 Consecutive Hours, Continuous Positive Airway Pressure (ICD-10-PCS; 2017-07-21)
DX: A41.9 Sepsis, unspecified organism (principal); K65.9 Peritonitis, unspecified; R65.21 Severe sepsis with septic shock; J96.00 Acute respiratory failure, unspecified whether with hypoxia or hypercapnia; E43 Unspecified severe protein-calorie malnutrition; N17.9 Acute kidney failure, unspecified; K81.0 Acute cholecystitis; K56.7 Ileus, unspecified; R18.8 Other ascites; J90 Pleural effusion, not elsewhere classified; N39.0 Urinary tract infection, site not specified; E87.0 Hyperosmolality and hypernatremia; D69.6 Thrombocytopenia, unspecified; K76.9 Liver disease, unspecified; K75.9 Inflammatory liver disease, unspecified; I25.10 Atherosclerotic heart disease of native coronary artery without angina pectoris; I48.0 Paroxysmal atrial fibrillation; I35.0 Nonrheumatic aortic (valve) stenosis; J45.909 Unspecified asthma, uncomplicated; D63.8 Anemia in other chronic diseases classified elsewhere; E87.6 Hypokalemia; G47.33 Obstructive sleep apnea (adult) (pediatric); N18.9 Chronic kidney disease, unspecified; E11.22 Type 2 diabetes mellitus with diabetic chronic kidney disease; J44.9 Chronic obstructive pulmonary disease, unspecified
CPT/HCPCS: 10045; 10078; 10081; 10203; 27000; 32100; 32110; 50101; 50382; 50386; 50643; 50953; 50969; 51046; 51114; 51412; 51437; 56525; 56527; 56528; 57092; 62110; 62900; 65002; 65043

== ENCOUNTER → 2017-08-21 | Outpatient (CLI) | payer OTHER, MEDICARE ==
[~2017-08-21] MED LIST changes: +ENOXAPARIN40 MG/0.1 SUBQ; +HUMALOG100 UNIT/1 SUBQ; +LASIX 40 MG TAB40 M2 IV; +LOPRESSOR25 PER TUBE; +PACERONE 200 M200 M1 PER TUBE
== END ==
LOC: CAT 13:18
DX: K80.80 Other cholelithiasis without obstruction (principal); K41.90 Unilateral femoral hernia, without obstruction or gangrene, not specified as recurrent

== ENCOUNTER → 2017-09-17 | Outpatient (CLI) | payer OTHER ==
[~2017-09-17] VITALS: Ht 185.4 cm; Wt 108.0 kg
[~2017-09-17] MED LIST changes: +AMARYL2 M1 PER TUBE; +ASPIR 8181 MG PER TUBE; -ASPIR 8181 MG PO; +ATORVASTATIN CA40 MG PER TUBE; -ATORVASTATIN CA40 MG PO; +BUSPIRONE HCL10 MG PER TUBE; +ENOXAPARIN40 MG/0.1 INJECTION; +LANSOPRAZOLE PER TUBE; +LASIX 40 MG TAB40 M2 PER TUBE; +LEVEMIR SUBQ; +TOPROL XL25 MG PER TUBE; +TRAZODONE HCL50 MG PER TUBE; +[UNRECOGNIZED DRUG - CODE] PER TUBE
[2017-09-17 08:59] VITALS: BP 128/45
== END | disposition home or self-care (01) ==
LOC: SPEC 08:10
DX: T85.9XXA Unspecified complication of internal prosthetic device, implant and graft, initial encounter (principal)

== ENCOUNTER → 2018-01-03 | Outpatient (CLI) | payer OTHER, MEDICARE ==
[~2018-01-03] VITALS: Ht 185.4 cm; Wt 86.2 kg
[~2018-01-03] MED LIST changes: +ALDACTONE25 MG PO; +AUGMENTIN 875-1 EACH PO; +LEVAQUIN 500 M500 M2 PO; +METOPROLOL SUCC25 M1 PO; +MIDODRINE HCL 55 M1 PO; +MUCINEX D ER 61 EACH PO; +ONDANSETRON HCL4 M2 PO; +POTASSIUM CHLO20 MEQ PO; +POTASSIUM20 PO; +PROTONIX40 M1 PO; +SENNA8.6 MG PO; +SYMBICORT80 MCG/4.1 INH; +TRAMADOL 50 MG50 MG PO; +URSODIOL300 MG PO
[2018-01-03 08:59] VITALS: BP 129/57
== END ==
LOC: SPEC 08:00
DX: T85.510A Breakdown (mechanical) of bile duct prosthesis, initial encounter (principal); K80.20 Calculus of gallbladder without cholecystitis without obstruction

== ENCOUNTER → 2018-01-10 | Outpatient (CLI) | payer OTHER, MEDICARE ==
[~2018-01-10] VITALS: Ht 185.4 cm; Wt 90.7 kg
[2018-01-10 14:38] VITALS: BP 121/60
== END | disposition home or self-care (01) ==
LOC: SPEC 14:18
DX: T85.510A Breakdown (mechanical) of bile duct prosthesis, initial encounter (principal); K80.20 Calculus of gallbladder without cholecystitis without obstruction

== ENCOUNTER 2018-01-18 12:21 | Inpatient (IN) | payer OTHER, MEDICARE ==
[2018-01-18] VITALS (7 sets, daily range): BP systolic 108–125; BP diastolic 50–65
[~2018-01-18] VITALS: Ht 185.4 cm; Wt 83.9 kg
--- NOTE | ~2018-01-18 | HC ---
[facility] [address] [place] [address] CONSULTATION Name: ONEIDA PHELPS Room #: 432-P [facility] IN M.R.#: [id number] Admission: 01/18/18 Attend Phys: Kevin Buck MD Discharge: Date of : 43 Report #: [id number] THIS REPORT FOR: //name// CC: Kevin Buck DATE OF SERVICE: 01/19/2018 ATTENDING PHYSICIAN: Dr. Kevin Buck. REASON FOR EVALUATION: Thickened intestine seen on CT imaging. HISTORY OF PRESENT ILLNESS: Chart reviewed, the patient examined. This is a 73-year-old who has got extensive medical history, in particular recently involved his biliary tract dating back to June of this year and has had recurrent problems with what sounds like cystic duct obstruction, cholecystitis, cholangitis, is unable to have a cholecystectomy, so had a cholecystostomy drain placed, became septic and shock, spent a month in the hospital over September and October. He has a longstanding cholecystostomy tube, apparently over the course of the 36 hours prior to his admission. It stopped draining and was felt to be dysfunctional and probably obstructed with stones. He did call his physician who referred to the Emergency Room. He did open it up and clinically felt much better. He denies any particular systemic illness in terms of fevers or chills. Appetite has been relatively stable, however, as part of the evaluation, did do CT imaging of the abdomen and pelvis which showed diffuse inflammatory change, greater involving the small bowel and result of diffuse edema, moderate ascites, a question of a gastroenteritis and possibly pseudomembranous colitis; however, when I questioned him, he states he has had constipation. He did have a hard stool couple of days ago, and he had somewhat semi-regular stool yesterday. ALLERGIES: NUT, no medicines. CURRENT MEDICATIONS: Include amiodarone, aspirin, budesonide, albuterol, estradiol, insulin, atorvastatin. PAST MEDICAL HISTORY: As noted above. 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 History of diabetes mellitus type 2, insulin requiring. Asthma, sleep apnea, elevated cholesterol, hypertension, reflux. SOCIAL HISTORY: Nonsmoker, occasional ethanol. FAMILY HISTORY: Noncontributory. REVIEW OF SYSTEMS: As above. [address] [address] CONSULTATION Name: ONEIDA PHELPS Room #: 432-P [facility] IN M.R.#: [id number] Admission: 01/18/18 Attend Phys: Kevin Buck MD Discharge: Date of : 43 Report #: [id number] PHYSICAL EXAMINATION: GENERAL: He is alert, cooperative, appropriate, is not encephalopathic. Does appear chronically ill and had significant acute component, but he is not toxic. VITAL SIGNS: Temperature 96.4, pulse 80, respirations 20, blood pressure 105/61. SKIN: Warm, dry and no rashes. HEENT: Unremarkable. NECK: Supple. LUNGS: Generally clear, somewhat diminished. HEART: Regular. No appreciated murmur. ABDOMEN: Soft, nontender, nondistended. There are no peritoneal signs. GENITOURINARY: Deferred. RECTAL: Deferred. LABORATORY DATA: CT as noted above. Lactic acid 1.9. CBC: White count of 4.8, H and H 12.4 and 36.2, platelets of 62. Electrolytes: Sodium 136, potassium 3.6, chloride 105, bicarbonate is 27, anion gap of 4. BUN and creatinine 15 and 1.5. Lipase of 52. AST of 71, ALT of 41, total bilirubin 1.7, albumin of 2.0, total protein 5.6. Estimated GFR 46. ASSESSMENT: Dysfunctional cholecystostomy tube. It sounds like it was obstructed and may still need some additional work. He notes it had stopped draining as well. At this point, I do not see clinical evidence of sepsis. It is difficult to ascertain what may be driving the generalized bowel edema given the absence of symptoms, and a really I am not inclined to think he has much reserve. I doubt this is an infectious or inflammatory process. It is active. I think we will hold antibiotics to see how he does clinically. Certainly, if he has diarrhea, would send stool for studies. <ELECTRONICALLY SIGNED> By: Son Connolly MD 01/19/18 0918 0634 0721 Son Connolly MD /nt
[~2018-01-18 12:21] MED LIST changes: -MIDODRINE HCL 55 M1 PO; -ONDANSETRON HCL4 M2 PO; -POTASSIUM20 PO; -PROTONIX40 M1 PO; -SENNA8.6 MG PO; -SYMBICORT80 MCG/4.1 INH; -TRAMADOL 50 MG50 MG PO
[2018-01-18 13:28] LABS: HEMATOCRIT 36.2 % (42.0-52.0); HEMOGLOBIN 12.4 gm/dL (14.0-18.0); MCH 30.9 pg (26.0-34.0); MCHC 34.2 g/dL (28.0-37.0); MCV 90.3 fL (80.0-100.0); RDW 18.7 % (10.5-14.5); WBC 4.8 thou/uL (4.0-11.0)
[2018-01-18 13:37] LABS: CALCIUM 8.6 mg/dL (8.5-10.1); CREATININE 1.5 mg/dL (0.7-1.3); POTASSIUM 3.6 mmol/L (3.5-5.1)
[2018-01-18 13:43] LABS: TOTAL BILIRUBIN 1.7 mg/dL (<0.1-1.0); TOTAL PROTEIN 5.6 g/dL (6.4-8.2)
[2018-01-18] MEDS ORDERED: NOVOLOG100 UNIT/1 SUBQ (15:37)
[2018-01-18] MEDS ORDERED: SYMBICORT160 MCG/4. INH (15:38)
[2018-01-18] MEDS ORDERED: LANTUS100 UNIT/M SUBQ (15:38)
[2018-01-18] MEDS ORDERED: MUCINEX D ER 61 EACH PO (21:23)
[2018-01-19 03:50] VITALS: BP 105/61
[2018-01-19 08:00] VITALS: BP 114/56
[2018-01-19 16:42] VITALS: BP 104/65
[2018-01-19 20:00] VITALS: BP 108/55
[2018-01-20 04:50] VITALS: BP 105/59
[2018-01-20 07:45] VITALS: BP 111/57
[2018-01-20 11:36] LABS: RBC 3.27 mil/uL (4.50-6.00); WBC 5.2 thou/uL (4.0-11.0)
[2018-01-20 11:37] LABS: HEMATOCRIT 29.6 % (42.0-52.0); MCH 30.9 pg (26.0-34.0); MCHC 34.2 g/dL (28.0-37.0); MCV 90.5 fL (80.0-100.0); RDW 17.9 % (10.5-14.5)
[2018-01-20 11:40] LABS: HEMOGLOBIN 10.1 gm/dL (14.0-18.0)
[2018-01-20 11:51] LABS: ALBUMIN 1.7 g/dL (3.4-5.0); CALCIUM 7.9 mg/dL (8.5-10.1); CREATININE 1.4 mg/dL (0.7-1.3); POTASSIUM 3.5 mmol/L (3.5-5.1); TOTAL BILIRUBIN 1.1 mg/dL (<0.1-1.0); TOTAL PROTEIN 4.9 g/dL (6.4-8.2)
[2018-01-20 16:55] VITALS: BP 114/66
[2018-01-20 20:00] VITALS: BP 112/67
[2018-01-21 04:00] VITALS: BP 110/61
[2018-01-21 08:40] VITALS: BP 96/52
[2018-01-21 09:20] LABS: HEMATOCRIT 30.2 % (42.0-52.0); HEMOGLOBIN 10.3 gm/dL (14.0-18.0); MCH 30.8 pg (26.0-34.0); MCHC 34.2 g/dL (28.0-37.0); RBC 3.35 mil/uL (4.50-6.00); RDW 18.3 % (10.5-14.5); WBC 6.3 thou/uL (4.0-11.0)
[2018-01-21 09:38] LABS: CALCIUM 8.1 mg/dL (8.5-10.1); CREATININE 1.4 mg/dL (0.7-1.3); POTASSIUM 3.1 mmol/L (3.5-5.1)
[2018-01-21 11:45] VITALS: BP 96/52
[2018-01-21 20:00] VITALS: BP 128/51
[2018-01-22] VITALS (7 sets, daily range): BP systolic 109–134; BP diastolic 54–74
[2018-01-22 06:50] LABS: CALCIUM 7.8 mg/dL (8.5-10.1); CREATININE 1.2 mg/dL (0.7-1.3); POTASSIUM 3.1 mmol/L (3.5-5.1)
== END 2018-01-22 16:54 | disposition home health service (06) | DRG 444 ==
LOC: ER 12:21 → 4E 14:49 → EROBS 14:49 → 4E 16:50
PROVIDERS: Emergency Medicine; Family Medicine; Radiology Diagnostic Radiology
PROC: 0F24X0Z Change Drainage Device in Gallbladder, External Approach (ICD-10-PCS; principal; 2018-01-21)
DX: K82.8 Other specified diseases of gallbladder (principal); E43 Unspecified severe protein-calorie malnutrition; K52.9 Noninfective gastroenteritis and colitis, unspecified; J45.909 Unspecified asthma, uncomplicated; K21.9 Gastro-esophageal reflux disease without esophagitis; Z96.643 Presence of artificial hip joint, bilateral; I48.91 Unspecified atrial fibrillation; E78.00 Pure hypercholesterolemia, unspecified; I25.10 Atherosclerotic heart disease of native coronary artery without angina pectoris; N18.9 Chronic kidney disease, unspecified; E11.22 Type 2 diabetes mellitus with diabetic chronic kidney disease; D69.6 Thrombocytopenia, unspecified; K80.50 Calculus of bile duct without cholangitis or cholecystitis without obstruction; I12.9 Hypertensive chronic kidney disease with stage 1 through stage 4 chronic kidney disease, or unspecified chronic kidney disease; Z86.73 Personal history of transient ischemic attack (TIA), and cerebral infarction without residual deficits; I25.2 Old myocardial infarction; Z95.5 Presence of coronary angioplasty implant and graft; Z79.899 Other long term (current) drug therapy; Z79.4 Long term (current) use of insulin; Z91.018 Allergy to other foods; Z87.891 Personal history of nicotine dependence; Z82.49 Family history of ischemic heart disease and other diseases of the circulatory system; Z82.5 Family history of asthma and other chronic lower respiratory diseases
CPT/HCPCS: 10183

== ENCOUNTER 2018-01-28 09:03 | Inpatient (IN) | payer OTHER, MEDICARE ==
[~2018-01-28] VITALS: Ht 185.4 cm; Wt 90.3 kg
--- NOTE | ~2018-01-28 | HC ---
[facility] [place] [address] [place] [address] CONSULTATION Name: ONEIDA PHELPS Room #: 419-P [facility] IN M.R.#: [id number] Admission: 01/28/18 Attend Phys: Kevin Buck MD Discharge: 01/30/18 Date of : 43 Report #: [id number] THIS REPORT FOR: //name// CC: Kevin Buck DATE OF SERVICE: 01/29/2018 HISTORY OF PRESENT ILLNESS: The patient is a 73-year-old white male with a complex prior history and readmitted to [facility] with abdominal pain near his biliary drain. The pain is much worse with movement. He has chronic cholecystitis with a biliary drain and is not felt to be a surgical candidate at this time. Per my review of the records and discussion with the patient and family. He does have significant generalized weakness that he relates back to his prolonged prior hospitalizations. We are seeing him in rehabilitation medicine consultation. PAST MEDICAL HISTORY: Includes history of sepsis, cholecystitis, acute renal insufficiency superimposed on chronic kidney disease with apparently 8 months where he was either acutely hospitalized, spent 26 days in the ICU, was apparently at [facility] for several months, was able to get home from a maximum of 5 weeks prior to being readmitted and has been too [facility] for [facility] facility stays. He has been followed by Surgery here and there is contact with Dr. Whitney and there are considerations for possible eventual procedures regarding his biliary system, but none is noted at the current time. PAST MEDICAL HISTORY: Includes diabetes mellitus type 2, [place] x 3, right hip replacement, angioplasty with 3 stents, bronchitis, hypertension, left hip replacement in 2012, hypertension, AFib with rapid ventricular rate. The gallbladder drain was placed on 07/03/2017 HABITS: No history of tobacco abuse. FAMILY HISTORY: Heart disease, COPD, diabetes, hypertension. ALLERGIES: Mustard. SOCIAL HISTORY: Lives with his , house, 2 steps in, ranch style, used a front-wheeled walker. She works during the day. REVIEW OF SYSTEMS: Complains of generalized overall weakness and debilitation problems getting up from the lower lying surface. PHYSICAL EXAMINATION: GENERAL: A 73-year-old white male in no obvious distress. He is alert, oriented, appropriate. HEENT: Appeared to be benign. [address] [address] CONSULTATION Name: ONEIDA PHELPS Room #: 419-P [facility] IN M.R.#: [id number] Admission: 01/28/18 Attend Phys: Kevin Buck MD Discharge: 01/30/18 Date of : 43 Report #: [id number] VITAL SIGNS: Last recorded temperature 97.3, pulse 75, respirations 14, blood pressure 124/65. NEUROLOGIC: He is alert, oriented. Facies appeared symmetric. ABDOMEN: He has a biliary drain in place. He does have a rather large protuberant abdomen, midline abdominal incision is well healed. EXTREMITIES: Functional range of motion of both upper extremities. Strength is grade 4 to 4-/5 both upper extremities. Lower extremities: He has bilateral venous stasis changes distally. Some decreased sensation in bilateral large toes to proprioception. Strength is grade 3+ to 4-/5. He is max assist with sit to stand. Gait 20 feet mod assist with a front-wheeled walker. ASSESSMENT: A 73-year-old white male with the following problem list: 1. Critical illness myopathy. 2. Chronic cholecystitis with biliary drain not a surgical candidate. 3. Abdominal pain with activity. 4. Non-insulin dependent diabetes mellitus. 5. Past history of sepsis with acute cholecystitis, peritonitis and ascites. 6. Atrial fibrillation with rapid ventricular rate. 7. Hypertension. 8. Prior right hip replacement. PLAN: Rehabilitation unit beds are currently tight. Note that plans are for the [facility] for further skilled therapies. Would continue with his plan at this point. Thank you for asking us to assist in this patient's care. <ELECTRONICALLY SIGNED> By: Evelio Hernández MD 02/07/18 1124 1551 1919 Evelio Hernández MD /[facility]
[2018-01-28 09:05] VITALS: BP 111/50
[2018-01-28 10:26] LABS: ABSOLUTE NEUTROPHILS 4.4 thou/uL (1.4-8.2); BASOPHILS 0.9 % (0.0-2.0); HEMATOCRIT 33.1 % (42.0-52.0); HEMOGLOBIN 11.3 gm/dL (14.0-18.0); MCH 30.9 pg (26.0-34.0); MCV 90.8 fL (80.0-100.0); MONOCYTES 7.4 % (1.0-8.0); POLYS 77.7 % (36.0-66.0); RBC 3.64 mil/uL (4.50-6.00); RDW 17.6 % (10.5-14.5); WBC 5.7 thou/uL (4.0-11.0)
[2018-01-28 10:36] LABS: CALCIUM 8.4 mg/dL (8.5-10.1); CREATININE 1.5 mg/dL (0.7-1.3); POTASSIUM 3.5 mmol/L (3.5-5.1)
[2018-01-28 10:42] LABS: ALBUMIN 1.9 g/dL (3.4-5.0); TOTAL BILIRUBIN 1.5 mg/dL (<0.1-1.0); TOTAL PROTEIN 5.4 g/dL (6.4-8.2)
[2018-01-28 10:45] LABS: PLATELET COUNT 66 thou/uL (150-400); PLATELET ESTIMATE DECREASED
[2018-01-28 15:19] VITALS: BP 113/52
[2018-01-28 17:01] VITALS: BP 113/52
[2018-01-28 17:52] VITALS: BP 113/52
[2018-01-28 18:02] VITALS: BP 128/46
[2018-01-28 19:10] VITALS: BP 109/58
[2018-01-29 03:55] VITALS: BP 111/62
[2018-01-29 07:20] VITALS: BP 115/62
[2018-01-29] MEDS ORDERED: URSODIOL300 MG PO (11:12)
[2018-01-29 15:10] VITALS: BP 124/65
[2018-01-29 19:10] VITALS: BP 122/62
[2018-01-30 04:05] VITALS: BP 141/69
[2018-01-30 08:00] VITALS: BP 127/63
[2018-01-30 08:19] VITALS: BP 123/63
== END 2018-01-30 12:56 | DRG 444 ==
LOC: ER 09:03 → 4E 14:13 → EROBS 14:13 → 4E 18:06
PROVIDERS: Emergency Medicine
DX: K81.1 Chronic cholecystitis (principal); E43 Unspecified severe protein-calorie malnutrition; G72.81 Critical illness myopathy; N17.9 Acute kidney failure, unspecified; R53.1 Weakness; E78.00 Pure hypercholesterolemia, unspecified; K21.9 Gastro-esophageal reflux disease without esophagitis; Z96.643 Presence of artificial hip joint, bilateral; D69.6 Thrombocytopenia, unspecified; I48.91 Unspecified atrial fibrillation; N18.9 Chronic kidney disease, unspecified; I12.9 Hypertensive chronic kidney disease with stage 1 through stage 4 chronic kidney disease, or unspecified chronic kidney disease; J44.9 Chronic obstructive pulmonary disease, unspecified; E11.22 Type 2 diabetes mellitus with diabetic chronic kidney disease; Z83.3 Family history of diabetes mellitus; I25.2 Old myocardial infarction; Z95.5 Presence of coronary angioplasty implant and graft; Z86.73 Personal history of transient ischemic attack (TIA), and cerebral infarction without residual deficits; Z90.49 Acquired absence of other specified parts of digestive tract; Z88.8 Allergy status to other drugs, medicaments and biological substances; Z87.891 Personal history of nicotine dependence; Z82.49 Family history of ischemic heart disease and other diseases of the circulatory system; Z83.6 Family history of other diseases of the respiratory system
CPT/HCPCS: 10084

== ENCOUNTER 2018-01-30 20:02 | Observation (INO) | payer OTHER, MEDICARE ==
[~2018-01-30] VITALS: Ht 185.4 cm; Wt 88.5 kg
--- NOTE | ~2018-01-30 | H ---
[facility] [place] [address] HISTORY AND PHYSICAL Name: ONEIDA PHELPS [id number]: 01/30/18 Attend Phys: Kevin Buck MD Discharge: 01/31/18 Date of : 41 Report #: [id number] THIS REPORT FOR: //name// CC: Kevin Buck DATE OF SERVICE: 01/31/2018 CHIEF COMPLAINT: Biliary drain dislodgement. HISTORY OF PRESENT ILLNESS: The patient had had a biliary drain placed for cholecystitis and was unable to get the gallbladder out. So, he was maintained on the drain until he can go to surgery. He had dislodgement of the biliary drain at his skilled facility, so he was brought in for replacement of that. PAST MEDICAL HISTORY: Included in the chart otherwise. MEDICATIONS: His meds are listed are there in the chart as well. ALLERGIES: Nothing acute. REVIEW OF SYSTEMS: CONSTITUTIONAL: No fever or chills. HEENT: No headaches or visual changes. CHEST: No chest pain, tightness in chest, short of breath, cough or sputum production. GASTROINTESTINAL: No nausea or vomiting. He has the dislodged drain. No diarrhea. GENITOURINARY: No burning or frequency. EXTREMITIES: No swelling or joint pain. OBJECTIVE: GENERAL: The patient is awake, alert, in no acute distress. VITAL SIGNS: Stable. HEENT: His mucous membranes are moist. NECK: Supple without adenopathy, thyromegaly or bruits. CHEST: Clear to auscultation. CARDIOVASCULAR: Regular without murmur. ABDOMEN: Obese and soft. The drain is dislodged in the right abdominal wall. There is no active abscess or rash around it. There is minimal drainage around it. His bowel sounds are present. EXTREMITIES: Show no edema. Pulses are intact. ASSESSMENT: Chronic cholecystitis with the biliary drain has been dislodged. [facility] [address] [place] [address] HISTORY AND PHYSICAL Name: ONEIDA PHELPS Room #: [address] [place] [address]#: [id number] Admission: 01/30/18 Attend Phys: Kevin Buck MD Discharge: 01/31/18 Date of : 41 Report #: [id number] PLAN: Admit and have IR replace that drain. <ELECTRONICALLY SIGNED> By: Kevin Buck MD 05/25/18 0837 9 7 Kevin Buck MD /nt
[2018-01-30 20:03] VITALS: BP 127/39
[2018-01-30 22:11] LABS: ABSOLUTE NEUTROPHILS 3.6 thou/uL (1.4-8.2); BASOPHILS 1.1 % (0.0-2.0); EOSINOPHILS 1.7 % (0.0-3.0); HEMATOCRIT 35.5 % (42.0-52.0); LYMPHOCYTES 15.8 % (24.0-44.0); MCH 30.8 pg (26.0-34.0); MCHC 33.7 g/dL (28.0-37.0); MCV 91.4 fL (80.0-100.0); MONOCYTES 7.5 % (1.0-8.0); PLATELET COUNT 67 thou/uL (150-400); POLYS 73.9 % (36.0-66.0); RBC 3.88 mil/uL (4.50-6.00); RDW 17.8 % (10.5-14.5); WBC 4.9 thou/uL (4.0-11.0)
[2018-01-30 22:16] LABS: CALCIUM 8.5 mg/dL (8.5-10.1); CREATININE 1.7 mg/dL (0.7-1.3); POTASSIUM 4.1 mmol/L (3.5-5.1)
[2018-01-30 22:23] LABS: INR 1.3; PROTIME 13.2 Seconds (9.3-11.4)
[2018-01-31 12:51] VITALS: BP 107/52
== END 2018-01-31 17:56 | disposition home or self-care (01) ==
LOC: ER 20:02 → EROBS 21:48
PROVIDERS: Emergency Medicine
DX: K80.10 Calculus of gallbladder with chronic cholecystitis without obstruction (principal); E11.9 Type 2 diabetes mellitus without complications; J45.909 Unspecified asthma, uncomplicated; G47.30 Sleep apnea, unspecified; I25.10 Atherosclerotic heart disease of native coronary artery without angina pectoris; E78.00 Pure hypercholesterolemia, unspecified; I10 Essential (primary) hypertension; K21.9 Gastro-esophageal reflux disease without esophagitis; I25.2 Old myocardial infarction; Z86.73 Personal history of transient ischemic attack (TIA), and cerebral infarction without residual deficits; Z95.1 Presence of aortocoronary bypass graft; Z87.891 Personal history of nicotine dependence; Z95.5 Presence of coronary angioplasty implant and graft; Z99.89 Dependence on other enabling machines and devices

== ENCOUNTER → 2018-02-12 | Outpatient (CLI) | payer OTHER, MEDICARE ==
[~2018-02-12] VITALS: Ht 185.4 cm; Wt 86.2 kg
[~2018-02-12] MED LIST changes: +MIDODRINE HCL 55 M1 PO; +ONDANSETRON HCL4 M2 PO; +POTASSIUM20 PO; +PROTONIX40 M1 PO; +SENNA8.6 MG PO; +SYMBICORT80 MCG/4.1 INH; +TRAMADOL 50 MG50 MG PO
[2018-02-12 11:10] VITALS: BP 132/64
[2018-02-12 11:29] LABS: HEMATOCRIT 34.1 % (42.0-52.0); HEMOGLOBIN 11.6 gm/dL (14.0-18.0); MCH 31.3 pg (26.0-34.0); MCHC 34.1 g/dL (28.0-37.0); MCV 91.7 fL (80.0-100.0); RBC 3.72 mil/uL (4.50-6.00); RDW 18.3 % (10.5-14.5); WBC 6.4 thou/uL (4.0-11.0)
[2018-02-12 11:37] LABS: CALCIUM 8.3 mg/dL (8.5-10.1); CREATININE 1.6 mg/dL (0.7-1.3); POTASSIUM 4.7 mmol/L (3.5-5.1)
[2018-02-12 11:39] LABS: INR 1.3; PROTIME 13.7 Seconds (9.3-11.4)
== END | disposition home or self-care (01) ==
LOC: CATH 10:43
PROVIDERS: Radiology Vascular & Interventional Radiology
DX: Z48.03 Encounter for change or removal of drains (principal); T85.698A Other mechanical complication of other specified internal prosthetic devices, implants and grafts, initial encounter; I13.10 Hypertensive heart and chronic kidney disease without heart failure, with stage 1 through stage 4 chronic kidney disease, or unspecified chronic kidney disease; I25.10 Atherosclerotic heart disease of native coronary artery without angina pectoris; I48.91 Unspecified atrial fibrillation; N18.9 Chronic kidney disease, unspecified; J44.9 Chronic obstructive pulmonary disease, unspecified; G47.33 Obstructive sleep apnea (adult) (pediatric); E78.00 Pure hypercholesterolemia, unspecified; K21.9 Gastro-esophageal reflux disease without esophagitis; Z95.1 Presence of aortocoronary bypass graft; Z95.5 Presence of coronary angioplasty implant and graft; Z86.73 Personal history of transient ischemic attack (TIA), and cerebral infarction without residual deficits; Z96.643 Presence of artificial hip joint, bilateral; Z87.891 Personal history of nicotine dependence; Z79.899 Other long term (current) drug therapy; Z87.440 Personal history of urinary (tract) infections; Z79.82 Long term (current) use of aspirin; Z98.890 Other specified postprocedural states; Z79.4 Long term (current) use of insulin; Y83.8 Other surgical procedures as the cause of abnormal reaction of the patient, or of later complication, without mention of misadventure at the time of the procedure

== ENCOUNTER 2018-04-07 01:48 | Emergency (ER) | payer OTHER, MEDICARE ==
[~2018-04-07] VITALS: Ht 185.4 cm; Wt 81.7 kg
--- NOTE | ~2018-04-07 | EKG ---
[place] [address] [address] [facility] [place] [address] ELECTROCARDIOGRAM REPORT Name: ONEIDA PHELPS [id number] Admission: 04/07/18 Attend Phys: Discharge: 04/07/18 Date of : 41 Report #: [id number] THIS REPORT FOR: //name// 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: DELPHINETAMMY : 1945 Requested By: Bro Dumont Order Number: [id number] MD: Heath Esteban Measurements Intervals [place] Rate: 127 P: 42 NH: 159 QRS: 113 QRSD: 86 T: -58 QT: 316 QTc: 460 Interpretive Statements Sinus tachycardia Atrial premature complex Right axis deviation Nonspecific ST and T wave abnormality Compared to ECG 10/11/2017 12:06:36 Atrial premature complex(es) now present Right-axis deviation now present Nonspecific change in the ST and T-wave segments Electronically Signed On 04-08-2018 7:59:29 CDT by Heath Esteban [email or web address] <ELECTRONICALLY SIGNED> By: Heath Esteban MD, [facility] 04/08/18 [phone] [id number] Heath Esteban MD, [facility] /EPI
[~2018-04-07 01:48] MED LIST changes: -MIDODRINE HCL 55 M1 PO; -ONDANSETRON HCL4 M2 PO; -POTASSIUM20 PO; -PROTONIX40 M1 PO; -SENNA8.6 MG PO; -SYMBICORT80 MCG/4.1 INH; -TRAMADOL 50 MG50 MG PO
[2018-04-07 02:31] LABS: ABSOLUTE NEUTROPHILS 8.8 thou/uL (1.4-8.2); BASOPHILS 0.6 % (0.0-2.0); EOSINOPHILS 0.9 % (0.0-3.0); HEMATOCRIT 29.8 % (42.0-52.0); HEMOGLOBIN 9.9 gm/dL (14.0-18.0); LYMPHOCYTES 5.7 % (24.0-44.0); MCH 31.4 pg (26.0-34.0); MCHC 33.3 g/dL (28.0-37.0); MONOCYTES 4.6 % (1.0-8.0); PLATELET COUNT 141 thou/uL (150-400); POLYS 88.2 % (36.0-66.0); RBC 3.17 mil/uL (4.50-6.00); RDW 21.2 % (10.5-14.5)
[2018-04-07 02:33] LABS: ANION GAP 5 mmol/L (7-16); BUN 24 mg/dL (7-18); CALCIUM 9.1 mg/dL (8.5-10.1); CHLORIDE 95 mmol/L (98-107); CO2 33 mmol/L (21-32); CREATININE 1.7 mg/dL (0.7-1.3); GLUCOSE 141 mg/dL (74-106); POTASSIUM 4.9 mmol/L (3.5-5.1); SODIUM 133 mmol/L (136-145)
[2018-04-07] MEDS ORDERED: PROTONIX40 M1 PO (02:38)
[2018-04-07] MEDS ORDERED: MIDODRINE HCL 55 M1 PO (02:38)
[2018-04-07] MEDS ORDERED: SYMBICORT80 MCG/4.1 INH (02:40)
[2018-04-07] MEDS ORDERED: SENNA8.6 MG PO (02:41)
[2018-04-07 02:42] LABS: ALBUMIN 2.5 g/dL (3.4-5.0); LIPASE 30 U/L (73-393); SGOT 48 U/L (15-37); SGPT 16 U/L (30-65); TOTAL BILIRUBIN 3.3 mg/dL (<0.1-1.0); TOTAL PROTEIN 5.8 g/dL (6.4-8.2); TROPONIN-I < 0.04 ng/mL (<0.06)
[2018-04-07] MEDS ORDERED: POTASSIUM20 PO (02:42)
[2018-04-07] MEDS ORDERED: ONDANSETRON HCL4 M2 PO (02:43)
[2018-04-07] MEDS ORDERED: TRAMADOL 50 MG50 MG PO (02:44)
[2018-04-07 03:41] LABS: URINE BLOOD NEGATIVE (Negative); URINE CLARITY CLEAR; URINE COLOR YELLOW; URINE GLUCOSE-RANDOM* NEGATIVE (Negative); URINE KETONES TRACE (Negative); URINE LEUKOCYTES-REFLEX NEGATIVE (Negative); URINE NITRITE-REFLEX NEGATIVE (Negative); URINE PROTEIN (DIPSTICK) TRACE (Negative)
[2018-04-07 03:45] LABS: ICTOTEST (BILI CONFIRMATORY) Negative (Negative); URINE BILIRUBIN NEGATIVE (Negative)
== END 2018-04-07 08:58 | disposition short-term general hospital (02) ==
LOC: ER 01:48
PROVIDERS: Emergency Medicine
DX: L02.211 Cutaneous abscess of abdominal wall (principal); R74.0 Nonspecific elevation of levels of transaminase and lactic acid dehydrogenase [LDH]; E11.9 Type 2 diabetes mellitus without complications; J45.909 Unspecified asthma, uncomplicated; G47.30 Sleep apnea, unspecified; E78.00 Pure hypercholesterolemia, unspecified; I25.10 Atherosclerotic heart disease of native coronary artery without angina pectoris; I10 Essential (primary) hypertension; K21.9 Gastro-esophageal reflux disease without esophagitis; I48.91 Unspecified atrial fibrillation; Z87.891 Personal history of nicotine dependence; Z98.890 Other specified postprocedural states; Z96.641 Presence of right artificial hip joint; Z91.018 Allergy to other foods; Z79.4 Long term (current) use of insulin